=== PATIENT | female | born 1950 | race African-American/Black ===

== ENCOUNTER 2022-10-30 11:55 | Outpatient (CLI) | payer MEDICARE, SELFPAY ==
--- NOTE | ~2022-10-30 | MM_ITS ---
EXAMINATION: MM stereotactic bx LT, MM post biopsy diagnostic LT, MM stereotactic specimen LT, Specim en Radiograph, Tissue Marker Clip Placement, Unilateral Mammogram DATE: 10/30/2022 14:11 (accession [id number]), 10/30/2022 14:10 (accession [id number]), 10/30 14:11 (accession [id number]) INDICATION: Abnormal mammogram: Grouped microcalcifications, posterior upper inner left breast. TECHNIQUE AND FINDINGS: The risks and potential benefits of the procedure were discussed with the patient and written informe d consent was obtained. Timeout procedure was performed. The patient was placed in the prone position on the dedicated stereotactic table with the left breast in craniocaudal/caudocranial/mediolateral/l ateromedial compression, and the area of interest was localized and targeted utilizing digital imagin g with stereotaxis. After sterile preparation of the skin, 2% lidocaine was utilized for local anesthesia at the skin pun cture site and 2% lidocaine with epinephrine was utilized for deeper local anesthesia/is about the bi opsy site. A 9G Gl[place] vacuum assisted biopsy needle was advanced to the level of the calcification o f interest from a medial approach utilizing stereotactic guidance and a total of 12 tissue core biops ies were obtained. A specimen radiograph demonstrates that the calcifications of interest are included within the tissue cores. A tissue marker clip was then placed at the biopsy site. A digital mammographic exposure co nfirmed the successful deployment of the biopsy marker. The needle was removed and hemostasis was ac hieved. A sterile bandage was applied. The patient tolerated the procedure well and there is no bernadine dence of significant immediate complication. The patient was given verbal as well as written postpro cedural instructions prior to discharge from the department. Tissue cores were submitted to surgical pathology for histologic analysis. A 2-view right unilateral digital mammogram was obtained post procedure, demonstrating the tissue mar ker clip in expected position. IMPRESSION: 1. Successful stereotactic biopsy of posterior upper inner quadrant right breast microcalcification s, followed by tissue marker clip placement. Please refer to pathology report for histologic analysi s. Reviewed, dictated and finalized at [facility] Reviewed, dictated and finalized at [facility]. [facility] N[facility]SE OCCUPATIONAL MEDICINE IMPRESSION: 1. Successful stereotactic biopsy of posterior upper inner quadrant right eleni ast microcalcifications, followed by tissue marker clip placement. Please refe r to pathology report for histologic analysis. IMPRESSION: 1. Successful stereotactic biopsy of posterior upper inner quadrant right eleni ast microcalcifications, followed by tissue marker clip placement. Please refe r to pathology report for histologic analysis.
== END 2022-10-30 11:56 | disposition home or self-care (01) ==
PROVIDERS: PCP Internal Medicine; Visit Provider Surgery
DX: R92.0 Mammographic microcalcification found on diagnostic imaging of breast (principal); N60.22 Fibroadenosis of left breast
CPT/HCPCS: 19081; 77065; 88305; A4648

== ENCOUNTER 2025-02-04 12:53 | Outpatient (CLI) | payer MEDICARE, SELFPAY ==
--- NOTE | ~2025-02-04 | US_ITS ---
LEFT LOWER EXTREMITY VENOUS ULTRASOUND Ordering provider: Leon Hall, History: . LE edema . Comparison: None. FINDINGS: --COMMON FEMORAL: Patent and free of thrombus. Normal compressibility, phasic flow and augmentation. --PROXIMAL SUPERFICIAL FEMORAL: Patent and free of thrombus. Normal compressibility, phasic flow and augmentation. --DISTAL SUPERFICIAL FEMORAL: Patent and free of thrombus. Normal compressibility, phasic flow and au gmentation. --POPLITEAL: Patent and free of thrombus. Normal compressibility, phasic flow and augmentation. --POSTERIOR TIBIAL: Patent and free of thrombus. Normal compressibility, phasic flow and augmentation . IMPRESSION: Negative left lower extremity venous US. No deep vein thrombosis. Reviewed, dictated and finalized at location A.
--- OUTSIDE RECORDS SUMMARY | 2025-02-04 12:58 | XMS_ITS | Clinical Summary ---
Author Organization [facility] Address [address] [place] [id number] Care Team Providers Care Artificial Leather Calender Operator Name Role Phone No, Physician Primary Care Provider [phone] Allergies Active Allergy Reactions Criticality Noted Date Comments Bee Venom Protein (Honey Bee) Rash High 2022 Horse Dander Other (See comments) High 04/17/2023 Oseltamivir Rash Medium 04/17/2023 Medications hydroCHLOROth iazide (HYDRODIURIL) 25 mg tablet HYDROCHLOROTHIAZIDE 25 MG ORAL TABLET 10/05/19 16 Active lisinopriL (PRINIVIL,ZES TRIL) 40 mg tablet Take by mouth daily 12/29/19 20 Active nitroglycerin (NITROSTAT) 0.4 mg SL tablet NITROGLYCERIN 0.4 MG SUBLINGUAL TABLET SUBLINGUAL 02/03/20 08 Active amLODIPine (NORVASC) 10 mg tablet Take 1 tablet (10 mg total) by mouth daily Act amy Active Problems No known active problems Family History Medical History Relation Name Comments Hypertension Brother Kidney disease Brother Cancer Father's Sister Hypertension Maternal Grandmother Cancer Mother Breast cancer Sister Cancer Sister Hypertension Sister Relation Name Status Comments Brother Father's Sister Maternal Grandmother Mother Sister Social History Tobacco Use Types Packs/Day Years Used Date Smoking Tobacco: Never Smokeless Tobacco: Never Tobacco Cessation:Counseling Given: Not Answered Personal Safety Answer Date Recorded Getting School Help Needed Not on file 10/21 Comments Unknown Sex and Gender Information Value Date Recorded Sex Assigned at Not on file 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 Gender Identity Not on file Sexual Orientation Not on file Obstetrics History Last Filed Vital Signs Vital Sign Reading Time Taken Comments Blood Pressure 161/89 04/17/2023 2:19 PM CDT Pulse 78 04/17/2023 2:19 PM CDT Temperature 36.6 C (97.8 F) 04/17/2023 2:19 PM CDT Respiratory Rate 16 04/17/2023 2:19 PM CDT Oxygen Saturation 100% 04/17/2023 2:19 PM CDT Inhaled Oxygen Concentration - - Weight 79.4 kg (175 lb) 04/17/2023 2:19 PM CDT Height 160 cm (5' 2.99 ) 04/17/2023 2:19 PM CDT Body Mass Index 31.01 04/17/2023 2:19 PM CDT Plan of Treatment Health Maintenance Due Date Last Done Comments Colon Cancer Screening-Colonoscopy 1950 Depression Screening 1950 Fall Risk Assessment 1950 Osteoporosis Screening-Bone Density Scan 1950 DTaP/Tdap/Td Vaccine (1 - Tdap) 1961 Hepatitis B Screening 01/28/1968 Pneumococcal vaccine 65+ (1 of 1 - PCV) 01/28/2000 Zoster Vaccine (1 of 2) 01/28/2000 Well Visit 65+ 2015 Covid-19 Vaccine ( season) 2024 08/01/2021, 12/04/2020, 11/06/2020 Influenza Vaccine (Season Ended) 2025 Hepatitis C Screening Completed 04/17/2023 Procedures Procedure Name Priority Date/Time Associated Diagnosis Comments HEPATITIS C ANTIBODY Routine 04/17/2023 3:23 PM CDT Leukopenia, unspecified type Elevated blood protein from Last 3 Months or Most Recently Relevant to Health Maintenance Results * Hepatitis C antibody (04/17/2023 3:23 PM CDT) Hep C Ab Nonreactive Nonreactive [facility] Comment:Antibodies to HCV no t detected. Does NOT exclude the possibility of recent exposure to HCV. Current interpretive data was last revised on 22 Blood 04/17/2023 3:23 PM CDT 04/17/2023 4:09 PM CDT us Bertha Zhao MD LAB MICROBIOLOGY - GENERAL ORDERABLES Edited Result - Final JACLYN [facility] Department [place] [address] from Last 3 Months or Most Recently Relevant to Health Maintenance Insurance MEDICARE Care Teams Artificial Leather Calender Operator Relationship Specialty Start Date End Date No, Physician PCP - General 02/18/23
--- OUTSIDE RECORDS SUMMARY | 2025-02-04 12:58 | XMS_ITS | Referral Summary ---
Author Organization [facility] Address [address] [place] [phone] Care Team Providers Care Drilling Superintendent Name Role Phone No, Physician Primary Care Provider Allergies Active Allergy Reactions Criticality Noted Date [...] amy Active Problems No known active problems Social History Tobacco Use Types Packs/Day Years Used Date Smoking Tobacco: Never Smokeless Tobacco: Never Tobacco Cessation:Counseling Given: Not Answered Personal Safety Answer Date Recorded Getting School Help Needed Not on file 10/21 Comments Unknown Sex and Gender Information Value Date Recorded Sex Assigned at Not on file 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 Does NOT exclude the possibility of recent exposure to HCV. Current interpretive data was last revised on 22 Blood 04/17/2023 3:23 PM CDT 04/17/2023 4:09 PM CDT us Bertha Zhao MD LAB MICROBIOLOGY - GENERAL ORDERABLES Edited Result - Final JACLYN CELAYA [facility] Department [place] [address] from Last 3 Months or Most Recently Relevant to Health Maintenance Insurance MEDICARE Care Teams Drilling Superintendent Relationship Specialty Start Date End Date No, Physician PCP - General 02/18/23
--- OUTSIDE RECORDS SUMMARY | 2025-02-04 12:58 | XMS_ITS | CONTINUITY OF CARE DOCUMENT ---
Author Name judd whaley Address Unknown Organization [facility] Address 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 Alecia Landrum MD Hyperlipidemia active Alecia Landrum MD Dizziness on standing active Carlos Domínguez RBBB active Deion Stoddard MD AYAD active Deion Stoddard MD ENCOUNTERS Date Type Provider Location Encounter Diag nosis 1 - 1 In-person encounter Office Visit Deion Stoddard MD [facility] 2 - 2 In-person encounter Office Visit Deion Stoddard MD [facility] RBBBOSA 7 - 8 In-person encounter Office Visit Alecia Landrum MD [facility] 9 - 9 In-person encounter Office Visit Alecia Landrum MD [facility] 2 - 3 In-person encounter Office Visit Alecia Landrum MD [facility] 5 - 5 In-person encounter Office Visit Alecia Landrum MD [facility] CHEST PAIN-HTN - uncontrolledCAD-11/20 CAROTID NLHTN-09/24 MAGDA DUP NEG MAGDA US NEG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HyperlipidemiaDizziness on standing 1 - 4 In-person encounter Office Visit Terence Portillo MD [facility] 5 - 3 In-person encounter Office Visit Terence Portillo MD [facility] 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 5 - 5 In-person encounter Office Visit Deion Stoddard MD [facility] 4 - 4 In-person encounter Office Visit Deion Stoddard MD [facility] 8 - 8 In-person encounter Office Visit Deion Stoddard MD [facility] 0 - 1 In-person encounter Office Visit Alecia Landrum MD [facility] HTN - uncontrolled 1 - 3 In-person encounter Office Visit Alecia Landrum MD [facility] VITAL SIGNS Date Observation Value Provider Body Mass Index (Ratio) 29.14 kg/m2 Mayra Stoddard MD blood pressure, cuff size regular Julian Carlson blood pressure, diastolic 92 mm[Hg] Julian Carlson blood pressure, systolic 140 mm[Hg] Sterling Carlson pulse rate 99 /min Nancy Carlson oxygen saturation, oximetry 99 % Nancy Carlson weight E&M 169.8 [lb_av] Nancy Carlson respiratory rate E&M 12 /min Nancy Carlson height E&M 64 [in_i] Nancy Carlson Body Mass Index (Ratio) 28.32 kg/m2 Mayra Stoddard MD blood pressure, diastolic -1 mm[Hg] Li nkLogic blood pressure, systolic 199 mm[Hg] Cici kLog blood pressure, diastolic 104 mm[Hg] Ja rret blood pressure, systolic 199 mm[Hg] Jar ret pulse rate 84 /min González oxygen saturation, oximetry 100 % González respiratory rate E&M 18 /min González weight E&M 165 [lb_av] González height E&M 64 [in_i] González tarsha y blood pressure, diastolic 92 mm[Hg] Cy kimberly Stratton blood pressure, systolic 192 mm[Hg] Maryann Stratton height E&M 64 [in_i] Deya bowman height in centimeters E&M 162.56 cm Erick Stratton Body Mass Index (Ratio) 30.72 kg/m2 Tara Landrum MD blood pressure, kramer tolic, second observation 90 mm[Hg] Alecia Landrum MD blood pressure, syst olic, second observation 178 mm[Hg] Alecia Landrum MD blood pressure, diastolic 90 mm[Hg] Cy kimberly Stratton blood pressure, systolic 188 mm[Hg] Maryann Stratton respiratory rate E&M 16 /min Deya Stratton pulse rate 79 /min Deya bowman oxygen saturation, oximetry 98 % Deya Stratton weight E&M 179 [lb_av] Deya bowman blood pressure, cuff size regular Cy kimberly Stratton height E&M 64 [in_i] Deya Shamika l temperature site temporal Audreylyndsey gama temperature E&M 97.8 [degF] Audrey Lindsay kernsy blood pressure, diastolic 108 mm[Hg] Zaki Perdomo RN blood pressure, systolic 190 mm[Hg] Lamont Perdomo RN pulse rate 74 /min Lamont Perdomo RN height E&M 64 [in_i] Lamont Perdomo RN height in centimeters E&M 162.56 cm Zaki abiel Perdomo RN Body Mass Index (Ratio) 29.86 kg/m2 Kwaku n Yuniorte pulse rate 78 /min Karla Block weight E&M 174 [lb_av] [facility] blood pressure, diastolic 82 mm[Hg] Br ittany Block blood pressure, systolic 160 mm[Hg] Lisa bhaskar [facility] oxygen saturation, oximetry 96 % [facility] respiratory rate E&M 16 /min Pending sale to [facility] Block height E&M 64 [in_i] [facility] temperature E&M 97.3 [degF] Audreyniles kernsy Body Mass Index (Ratio) 29.69 kg/m2 Kwaku Domínguez blood pressure, diastolic 95 mm[Hg] Cy kimberly Stratton blood pressure, systolic 174 mm[Hg] Maryann david Stratton pulse rate 79 /min Deya Chuckiejett l oxygen saturation, oximetry 98 % Deyalyndsey Stratton blood pressure, cuff size regular Cy kimberly Stratton respiratory rate E&M 16 /min Deya Stratton weight E&M 173 [lb_av] Deya Chuckiebel l height E&M 64 [in_i] Deya Chuckiebel l temperature E&M 98.0 [degF] Audreyniles Montoya edson Body Mass Index (Ratio) 29.69 kg/m2 Kwaku Domínguez temperature E&M 97.4 [degF] Liliana Puhs e blood pressure, resting Yes Brit [employer] [facility] Block pulse rate 78 /min Karla Block oxygen saturation, oximetry 98 % Karla Block blood pressure, diastolic 82 mm[Hg] Br ittany Block blood pressure, systolic 180 mm[Hg] Lisa ttany Block weight E&M 173 [lb_av] Karla Block respiratory rate E&M 16 /min Pending [facility] to [facility] Block height E&M 64 [in_i] [facility] blood pressure, diastolic 95 mm[Hg] Jose emelyNicolasaabiel Aguila blood pressure, systolic 182 mm[Hg] Farhana Aguila pulse rate 98 /min Joana Araiza oliver oxygen saturation, oximetry 97 % Joana Aguila respiratory rate E&M 18 /min Dano lutz Aguila Body Mass Index (Ratio) 33.81 kg/m2 Gloria Aguila weight E&M 197 [lb_av] Joana Araiza oliver blood pressure, diastolic 98 mm[Hg] Sarabjit chaaprrolyndsey Garvinecs RN blood pressure, systolic 205 mm[Hg] Radames sta Virgieecs RN pulse rate 93 /min [place] Demecs R N oxygen saturation, oximetry 95 % [place] Cory RN respiratory rate E&M 18 /min Annie Demecs RN Body Mass Index (Ratio) 33.47 kg/m2 Sang Ray RN weight E&M 195 [lb_av] [place] Demecs R N blood pressure, diastolic 98 mm[Hg] Zaki Perdomo RN blood pressure, systolic 175 mm[Hg] Lamont Perdomo RN pulse rate 74 /min Lamont Dunns RN oxygen saturation, oximetry 98 % Lamont Dunns RN respiratory rate E&M 16 /min Lamont dillon RN Body Mass Index (Ratio) 29.97 kg/m2 Lamont Dunns RN weight E&M 174 [lb_av] Lamont Dunns RN Body Mass Index (Ratio) 30.66 kg/m2 Mcadams i Emily blood pressure, diastolic 96 mm[Hg] Heber rri Emily blood pressure, systolic 163 mm[Hg] Milton Diaz pulse rate 61 /min Leatha Talbot lder oxygen saturation, oximetry 98 % Leatha Diaz respiratory rate E&M 17 /min Leatha mesa weight E&M 178 [lb_av] Leatha Talbot lder blood pressure, diastolic 104 mm[Hg] Zaki Perdomo RN blood pressure, systolic 203 mm[Hg] Lamont Perdomo RN pulse rate 73 /min Lamont Perdomo RN oxygen saturation, oximetry 99 % Lamont Dunnguy FREGOSO respiratory rate E&M 16 /min Lamont dillon RN Body Mass Index (Ratio) 31.01 kg/m2 Lamont Dunns RN weight E&M 180 [lb_av] Lamont Dunns RN height E&M 64 [in_i] Lamont Perdomo RN blood pressure, diastolic 106 mm[Hg] Zaki Perdomo RN blood pressure, systolic 193 mm[Hg] Lamont Perdomo RN pulse rate 81 /min Lamont Perdomo RN oxygen saturation, oximetry 99 % Lamont Perdomo RN respiratory rate E&M 16 /min Lamont dillon RN weight E&M 190 [lb_av] Lamont Perdomo RN blood pressure, diastolic, left arm 95 mm [Hg] Yuval Dave blood pressure, systolic, left arm 155 mm [Hg] Yuval Dave blood pressure, diastolic, right arm 93 m m[Hg] Yuval Dave blood pressure, systolic, right arm 153 m m[Hg] Yuval Dave pulse rate 70 /min Yuval Acosta oxygen saturation, oximetry 97 % Yuval Acosta respiratory rate E&M 18 /min Yuval sutton weight E&M 191 [lb_av] Yuval Acosta ALLERGIES Allergy Name Onset Date Reaction Criticality Status TAMIFLU High Criticality active RESULTS Date Observation Value Provider Reference Range Interpretation Location C-reactive protein, serum 0.2 mg/dL [facility] 0.0 - 0.5 anion gap, serum 10.0 [facility] - albumin/globulin ratio, serum 1.8 g/dL [facility] 1.1 - 2.5 globulin, serum 5.2 [facility] 2.3 - 3.8 High urea nitrogen/creatinine ratio, serum 15.0 [facility] - Estimated Glomerular Filtration Rate (calc) 76.5 (?) [facility] 59.0 - chloride, serum 101.0 mmol/L [facility] 98.0 - 107.0 potassium, serum 3.4 mmol/L [facility] 3.5 - 5.1 Low sodium, serum 139.0 mmol/L [facility] 136.0 - 145.0 creatinine, serum 0.8 mg/dL [facility] 0.5 - 0.9 carbon dioxide, venous blood 28.0 mmol/L [facility] 23.0 - 31.0 albumin, serum 4.1 g/dL [facility] 3.5 - 5.2 calcium, serum 9.4 mg/dL [facility] 8.6 - 10.2 aspartate aminotransferase (SGOT), serum 27.0 1/L [facility] 0.0 - 32.0 alkaline phosphatase, serum 79.0 1/L [facility] 40.0 - 130.0 alanine aminotransferase (SGPT), serum 17.0 1/L [facility] 0.0 - 33.0 protein, total, serum 9.3 g/dL [facility] 6.6 - 8.7 High bilirubin, serum, total 0.6 mg/dL [facility] 0.0 - 1.2 urea nitrogen, blood 12.0 mg/dL [facility] 8.0 - 23.0 blood glucose, random 111.0 mg/dL [facility] 74.0 - 99.0 High lipoprotein, beta, serum, point, quantitative, calculated 124 mg/dL Tila Erazo cholesterol, serum 214 mg/dL Tila Erazo alanine aminotransferase (SGPT), serum 19 1/L Tila Erazo aspartate aminotransferase (SGOT), serum 23 1/L Tila Erazo creatinine, serum 0.92 mg/dL Tila Erazo potassium, serum 3.9 mmol/L Tila Erazo sodium, serum 139 mmol/L Tila Erazo HISTORY OF MEDICATION USE Medication Status Instructions Dates Provider Indications Com ments amlodipine 10 mg tablet active TAKE 1 TABLET BY MOUTH EVERY DAY Deion Stoddard MD nifedipine 30 mg tablet extended release completed Take 1 tablet by mouth once a day 03/20 - 03/26 Deion Stoddard MD spironolactone 25 mg tablet completed Take 1 tablet by mouth once a day 03/17 - 03/26 Deion Stoddard MD omeprazole 40 mg capsule,delayed release(/EC) completed capsule by mouth once a day 12/28 - 03/26 Deion Stoddard MD lisinopril 40 mg tablet active tablet by mouth once a day 12/28 Deion Stoddard MD atorvastatin 20 mg tablet completed Take 1 tablet by mouth once a day 12/07 - 03/26 Deion Stoddard MD #30, 30 days supply, Prescribed by KAREN PAYTON, Filled 12/08/2019 NAPROSYN TABS completed as needed for pain - 12/28 Alecia Landrum MD CLONIDINE HCL 0.1 MG ORAL TABLET completed ONE TAB.at hs - 09/19 Annie Ray RN NEXIUM CAPSULE DELAYED RELEASE completed as needed - 03/31 Leatha Diaz CARVEDILOL 6.25 MG ORAL TABLET completed ONE TAB. TWICE DAILY as needed - 09/19 Annie Ray RN ZANTAC 150 MG ORAL TABLET completed po bid as needed - 12/28 Alecia Landrum MD NORVASC 5 MG ORAL TABLET completed po daily 09/19 - 01/04 Alecia Landrum MD RANITIDINE HCL 150 MG ORAL TABLET completed ONE TAB TWICE DAILY - Lamont Perdomo RN nitroglycerin 0.4 mg tablet, sublingual active Take tablet under tongue as needed Deion Stoddard MD CRESTOR 40 MG ORAL TABLET completed at hs - 09/19 Annie Ray RN ASPIRIN 81 MG ORAL TABLET CHEWABLE completed ONE TAB. DAILY - 11/12 Lamont Perdomo RN NORVASC 5 MG ORAL TABLET completed ONE TAB. DAILY - 02/02 Alecia Landrum MD PROCARDIA XL 60 MG ORAL TABLET EXTENDED RELEASE 24 HOUR completed one tab daily - Lamont Perdomo RN hydrochlorothiazide 25 mg tablet active 1 tablet by mouth once a day 10/05 Deion Stoddard MD LISINOPRIL 40 MG ORAL TABLET completed ONE TAB. twice DAILY - 09/19 Annie Ray RN approved for 1 year per [place] Medicaid. 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 Terence Portillo MD drug use no Terence Gutierrez alcohol use no Teernce Gutierrez smoking status Never smoker Annie Ray RN social history reviewed E&M reviewed Lamont Perdomo RN social history reviewed E&M reviewed Deion Stoddard MD drug use no Lamont Perdomo RN passive cigarette sm lukas exposure no Lamont Perdomo RN social history reviewed E&M reviewed Lamont Perdomo RN smoking status never smoker Lamont Perdomo RN social history E&M Marital Statu s: L ashley with family/friends E thnicity: Lamont Perdomo RN social history reviewed E&M reviewed Lamont Perdomo RN alcohol use, average drinks per day none [facility] smoking status Non-smoker [facility] alcohol use, average drinks per day none [facility] smoking status Non-smoker [facility] MENTAL STATUS Date Observation Value Provider assessment of judgme nt and insight E&M Alert and oriented to time, place and person. Mood and affect are normal. Lamont Perdomo RN assessment of judgme nt and insight E&M Alert and oriented to time, place and person. Mood and affect are normal. Deion Stoddard MD assessment of judgme nt and insight E&M Alert and oriented to time, place and person. Mood and affect are normal. Lamont Perdomo RN assessment of judgme nt and insight E&M Alert and oriented to time, place and person. Mood and affect are normal. Lamont Perdomo RN assessment of judgme nt and insight E&M Alert and oriented to time, place and person. Mood and affect are normal. Alecia Landrum MD FAMILY HISTORY Family Member Condition Mother Family History of Ot her Diseases INSURANCE PROVIDERS Payer name Policy type / Coverage type [employer] party ID [place] [employer] Medicare [id number] ADVANCE DIRECTIVES Name Date DISCUSSED - NO DECISION MADE TREATMENT PLAN Date Name Performer Cardiology Deion Stoddard MD Cardiology: H er updated medication list for this problem includes: Lisinopril 40 Mg Tablet (Lisinopril) ..... Tablet by mouth once a day Hydrochlorothiazide 25 Mg Tablet (Hydrochlorothiazide) ..... 1 tablet by mouth once a day Amlodipine 10 Mg Tablet (Amlodipine) ..... Take 1 tablet by mouth every day BP today: 140/92 P rior BP: 199/-1 (03/26/2024) Labs Reviewed: C reat: 0.8 (09/20/2015) C hol: 214 (09/18/2012) LDL: 124 (09/18/2012) Deion Stoddard MD Cardiology Deion Stoddard MD Cardiology: N ot taking statin Deion Stoddard MD Cardiology:Given the patient's limitations in mobility due to arthritic pains and sob, they would not be able to reach the 85% of max predicted heart rate needed for routine stress testing to be specific for ischemia. Based on this a nuclear regadenoson nuclear stress test should be performed. Her atypical CP may be anginal equivalent Deion Stoddard MD Cardiology Deion Stoddard MD Cardiology:She has u sed CPAP in the past, but is not using it currently c jodi home sleep study as AYAD may be contributing to her HTN Deion Stoddard MD Cardiology:Not taking statin Araceli Stoddard MD Cardiology:Recent ep isode of chest pain while under emotional stress Deion Stoddard MD Cardiology:Markedly elevated, will get her on RPM r /o primary htn with renal artery doppler D iscussion of benefits for remote patient monitoring took place. Patient gives consent for remote monitoring of physiologic parameters including, but not limited to, weight, blood pressure, pulse oximetry, respiratory flow rate. The following medications were removed from the medication list: Spironolactone 25 Mg Tablet (Spironolactone) ..... Take 1 tablet by mouth once a day Nifedipine 30 Mg Tablet Extended Release (Nifedipine) ..... Take 1 tablet by mouth once a day & #13;Her updated medication list for this problem includes: Lisinopril 40 Mg Tablet (Lisinopril) ..... Tablet by mouth once a day Hydrochlorothiazide 25 Mg Tablet (Hydrochlorothiazide) ..... 1 tablet by mouth once a day Amlodipine 10 Mg Tablet (Amlodipine) ..... Take 1 tablet by mouth every day BP today: 199/104 P rior BP: 192/92 (02/11/2020) Labs Reviewed: C reat: 0.8 (09/20/2015) C hol: 214 (09/18/2012) LDL: 124 (09/18/2012) Deion Stoddard MD Cardiology:On Atorva statin which she continues. Alecia Landrum MD Cardiology:Resolved. Alecia hawkins MD Cardiology:Still persists. Livan Landrum MD Cardiology:Blood pre ssure remians uncontrolled as she has been noncompliant with Nifedipine due to fatigue. Advised to take Nifedipine at night to see if this improves blood pressure control while not interfering with her ability to work. Alecia Landrum MD Cardiology :Recently started on Atorvastatin which she continues. Carlos Cardiology :No recurrence. Carlos Cardiology :Persists but improved. Will continue to monitor. Carlos Cardiology :Blood pr essure control seems to have improved. Will repeat ambulatory blood pressure monitoring in 2 weeks. She may need increased dose of Nifedipine to control the blood pressure. Compliance with diet and medications have been advised. Carlos gerard Cardiology :Recently started on Atorvastatin which she continues. Alecia Landrum MD Cardiology :Persists . Likely related to uncontrolled hypertension. No orthostasis documented in the office. Her carotid doppler was normal. Alecia Landrum MD Cardiology :No recur rence. Her recent stress test was normal and she has been reassured. Alecia Landrum MD Cardiology :Her bloo d pressure remains elevated with symptoms of dizziness, blurred vision, and nausea. No orthostasis documented: BP sitting 189/100, BP standing 189/100. Will discontinue Norvasc and start Nifedipine ER 30mg daily. She is advised to reduce her daily sodium intake to less than 2g per day. Advised to monitor her blood pressure regularly. We aim for < 130/80. Her renal arterial doppler shows no evidence of renal artery stenosis. She did have an ambulatory blood pressure monitoring which showed spikes of blood pressure over 200 systolic and average blood pressure in the 180s/ 100s. Alecia Landrum MD Cardiology:Dizziness and lightheadedness upon standing of unclear etiology. Advisd to change positions slowly. Will arrange carotid doppler. Carlos Cardiology Carlos Cardiology:Recently started on Atorvastatin which she continues. Carlos Cardiology:Atypical chest pain at rest likely related to uncontrolled hypertension. Will arrange stress test to rule out ischemia. Carlos Cardiology:Her recen t renal function was normal. Will add Aldactone 25mg daily and arrange renal arterial doppler. Will also arrange ambulatory blood pressure monitoring to further evaluate blood pressure control. Carlos Domínguez Hem/Onc:The patient' s SPEP revealed a polyclonal hypergammaglobnemia with no detectable monoclonal protein on serum immunofix. I question if the patient has an underlying vasculitis as the cause of her symptoms. I will recheck SPEP, SIFE, Free light chains. I will also evaluate for cyroglobulinemia. I will check heaptitis seroligies as well as CHRISTIAN. Although unlikely, I will also check spot urine for porphobilinogen for acute porhpyria. The patient is due for a mammogram which will be ordered. She will return in two weeks to review lab testing. Orders: B eta-2 microglobulin (55335) KAPPA LIGHT CHAIN, FREE (78077) L AMBDA LIGHT CHAIN, FREE (71465) C OMPREHENSIVE METABOLIC PANEL W/EGFR (31424) E LECTROPHORESIS AND IMMUNOFIXATION, SERUM WITH TRACING (57164) A NA w/Reflex (293021) R HEUMATOID FACTOR (4418) P ORPHOBILINOGEN, QUANT., RANDOM URINE (6329) L DH (662796) A CUTE HEPATITIS PANEL (REFL) (02323) C RYOGLOBULIN (%CRYOCRIT), SERUM (74061) 9 9204 MOD Complex (CPT-49573) Terence Portillo MD : H er updated medication list for this problem includes: Lisinopril 40 Mg Tabs (Lisinopril) ..... One tab. twice daily Nitroglycerin 0.4 Mg Subl (Nitroglycerin) ..... Take as needed for chest pain Amlodipine Besylate 10 Mg Tabs (Amlodipine besylate) ..... One tab. daily as needed Carvedilol 6.25 Mg Tabs (Carvedilol) ..... One tab. twice daily as needed BP today: / Prior BP: 163/96 (12/17/2012) C ardiac Cath: EF 60%. Angiographically normal coronary arteries. Normal LV systolic function. Angiographically normal left and right renal artery. (12/09/2007) C arotid Doppler/Duplex: normal: (11/25/2007) C HOL: 214 (09/18/2012) LDL: 124 (09/18/2012) Creat: 0.92 (09/18/2012) Na+: 139 (09/18/2012) K+: 3.9 (09/18/2012) Deion Stoddard MD : H er updated medication list for this problem includes: Lisinopril 40 Mg Tabs (Lisinopril) ..... One tab. twice daily Crestor 40 Mg Tabs (Rosuvastatin calcium) ..... At hs Nitroglycerin 0.4 Mg Subl (Nitroglycerin) ..... Take as needed for chest pain Amlodipine Besylate 10 Mg Tabs (Amlodipine besylate) ..... One tab. daily as needed Carvedilol 6.25 Mg Tabs (Carvedilol) ..... One tab. twice daily as needed BP today: / Prior BP: 163/96 (12/17/2012) C ardiac Cath: EF 60%. Angiographically normal coronary arteries. Normal LV systolic function. Angiographically normal left and right renal artery. (12/09/2007) C arotid Doppler/Duplex: normal: (11/25/2007) C HOL: 214 (09/18/2012) LDL: 124 (09/18/2012) Creat: 0.92 (09/18/2012) Na+: 139 (09/18/2012) K+: 3.9 (09/18/2012) Deion Stoddard MD :still non compliant H er updated medication list for this problem includes: Lisinopril 40 Mg Tabs (Lisinopril) ..... One tab. twice daily Hydrochlorothiazide 25 Mg Tabs (Hydrochlorothiazide) ..... One tab daily Amlodipine Besylate 10 Mg Tabs (Amlodipine besylate) ..... One tab. daily as needed Carvedilol 6.25 Mg Tabs (Carvedilol) ..... One tab. twice daily as needed Clonidine Hcl 0.1 Mg Tabs (Clonidine hcl) ..... One tab.at hs Prior BP: 163/96 (12/17/2012) Labs Reviewed: C reat: 0.92 (09/18/2012) C hol: 214 (09/18/2012) LDL: 124 (09/18/2012) Deion Stoddard MD follow up: H er updated medication list for this problem includes: Lisinopril 40 Mg Tabs (Lisinopril) ..... One tab. twice daily Crestor 40 Mg Tabs (Rosuvastatin calcium) ..... At hs Nitroglycerin 0.4 Mg Subl (Nitroglycerin) ..... Take as needed for chest pain Amlodipine Besylate 10 Mg Tabs (Amlodipine besylate) ..... One tab. daily Carvedilol 6.25 Mg Tabs (Carvedilol) ..... One tab. twice daily Orders: E KG (CPT-67215) Deion Stoddard MD follow up: H er updated medication list for this problem includes: Lisinopril 40 Mg Tabs (Lisinopril) ..... One tab. twice daily Hydrochlorothiazide 25 Mg Tabs (Hydrochlorothiazide) ..... One tab daily Amlodipine Besylate 10 Mg Tabs (Amlodipine besylate) ..... One tab. daily Carvedilol 6.25 Mg Tabs (Carvedilol) ..... One tab. twice daily I s not compliant with her meds. to have sleep study this weekend. Deion Stoddard MD follow up:I believe it is non cardiac. H er updated medication list for this problem includes: Lisinopril 40 Mg Tabs (Lisinopril) ..... One tab. twice daily Nitroglycerin 0.4 Mg Subl (Nitroglycerin) ..... Take as needed for chest pain Amlodipine Besylate 10 Mg Tabs (Amlodipine besylate) ..... One tab. daily Carvedilol 6.25 Mg Tabs (Carvedilol) ..... One tab. twice daily Deion Stoddard MD chest pain:more like ly non cardiac T he following medications were removed from the medication list: Aspirin 81 Mg Chew (Aspirin) ..... One tab. daily Her updated medication list for this problem includes: Lisinopril 40 Mg Tabs (Lisinopril) ..... One tab. twice daily Nitroglycerin 0.4 Mg Subl (Nitroglycerin) ..... Take as needed for chest pain Amlodipine Besylate 10 Mg Tabs (Amlodipine besylate) ..... One tab. daily Carvedilol 6.25 Mg Tabs (Carvedilol) ..... One tab. twice daily BP today: / Prior BP: 193/106 (09/13/2009) C ardiac Cath: EF 60%. Angiographically normal coronary arteries. Normal LV systolic function. Angiographically normal left and right renal artery. (12/09/2007) C arotid Doppler/Duplex: normal: (11/25/2007) Orders: E KG (CPT-60476) C omplete Echo (CPT-40630) Deion Stoddard MD chest pain:203/104 t juliette. she has ah x of sleep apnea but has lost her mask and will need a sleep study. T he following medications were removed from the medication list: Aspirin 81 Mg Chew (Aspirin) ..... One tab. daily Her updated medication list for this problem includes: Lisinopril 40 Mg Tabs (Lisinopril) ..... One tab. twice daily Hydrochlorothiazide 25 Mg Tabs (Hydrochlorothiazide) ..... One tab daily Amlodipine Besylate 10 Mg Tabs (Amlodipine besylate) ..... One tab. daily Carvedilol 6.25 Mg Tabs (Carvedilol) ..... One tab. twice daily Prior BP: 193/106 (09/13/2009) Deion Stoddard MD chest pain: T he following medications were removed from the medication list: Aspirin 81 Mg Chew (Aspirin) ..... One tab. daily Her updated medication list for this problem includes: Lisinopril 40 Mg Tabs (Lisinopril) ..... One tab. twice daily Crestor 40 Mg Tabs (Rosuvastatin calcium) ..... At hs Nitroglycerin 0.4 Mg Subl (Nitroglycerin) ..... Take as needed for chest pain Amlodipine Besylate 10 Mg Tabs (Amlodipine besylate) ..... One tab. daily Carvedilol 6.25 Mg Tabs (Carvedilol) ..... One tab. twice daily BP today: / Prior BP: 193/106 (09/13/2009) C ardiac Cath: EF 60%. Angiographically normal coronary arteries. Normal LV systolic function. Angiographically normal left and right renal artery. (12/09/2007) C arotid Doppler/Duplex: normal: (11/25/2007) Deion Stoddard MD Ready to sign:BP merlin vated. Lisinopril increased to 40 mg daily. T he following medications were removed from the medication list: Norvasc 5 Mg Tabs (Amlodipine besylate) ..... One tab. daily H er updated medication list for this problem includes: Lisinopril 20 Mg Tabs (Lisinopril) ..... Two tab. daily Hydrochlorothiazide 25 Mg Tabs (Hydrochlorothiazide) ..... One tab daily Procardia Xl 60 Mg Tb24 (Nifedipine) ..... One tab daily Aspirin 81 Mg Chew (Aspirin) ..... One tab. daily Alecia Landrum MD Ready to sign:Occaso nal chest pain. S/L NTG prn. T he following medications were removed from the medication list: Norvasc 5 Mg Tabs (Amlodipine besylate) ..... One tab. daily Her updated medication list for this problem includes: Lisinopril 20 Mg Tabs (Lisinopril) ..... Two tab. daily Procardia Xl 60 Mg Tb24 (Nifedipine) ..... One tab daily Aspirin 81 Mg Chew (Aspirin) ..... One tab. daily Nitroglycerin Subl (Nitroglycerin subl) ..... Prn for chest pain Alecia Landrum MD Date Name Hypertension [facility] Stress Regadenoson PROBNP, N TERMINAL BASIC METABOLIC PANE L W/EGFR RPM (remote patient monitoring) Sleep Study Home Renal Artery Duplex Complete Echo Ambulatory BP Ambulatory BP Carotid Duplex Bilat eral Renal Artery Duplex Stress Regadenoson ANCA SCREEN WITH REF SUDHIR TO C- & P-ANCA TITERS AND MPO OR [place]-3 AB ANCA Panel ANCA SCREEN WITH REF SUDHIR TO C- & P-ANCA TITERS AND MPO OR [place]-3 AB ANCA Panel SED RATE BY MODIFIED WESTERGREN C-REACTIVE PROTEIN CRYOGLOBULIN (%CRYOC RIT), SERUM ACUTE HEPATITIS PANE L (REFL) Mammogram, Bilateral LDH PORPHOBILINOGEN, OLIVE NT., RANDOM URINE RHEUMATOID FACTOR CHRISTIAN w/Reflex ELECTROPHORESIS AND IMMUNOFIXATION, SERUM WITH TRACING COMPREHENSIVE METABO LIC PANEL W/EGFR LAMBDA LIGHT CHAIN, FREE KAPPA LIGHT CHAIN, F REE Beta-2 microglobulin Complete Echo Sleep Study Kidney Ultrasound Renal Artery Duplex HISTORY OF PROCEDURES Procedure Date Procedure Name Provider Procedure Notes S tatus Complex e/m visit add on Nancy Carlson completed EKG Deion Stoddard MD completed EKG Alecia Landrum MD complet ed EKG Alecia Landrum MD complet ed EKG Alecia Landrum MD complet ed Regadenoson, 4 units Alecia Landrum MD completed Cardiolite, 2 units Alecia Landrum MD completed SPECT Images Alecia Landrum MD compl eted Stress EKG Alecia Landrum MD complet ed EKG Alecia Landrum MD complet ed SNOMED-CT: 361649040 250540 Current Medications Documented Terence Portillo MD completed SNOMED-CT: 852667486 355435 Current Medications Documented Terence Portillo MD completed EKG Deion Stoddard MD completed EKG Deion Stoddard MD completed EKG Alecia Landrum MD complet ed
== END 2025-02-04 12:54 | disposition home or self-care (01) ==
PROVIDERS: PCP Internal Medicine; Visit Provider Internal Medicine
DX: R60.0 Localized edema (principal)
CPT/HCPCS: 93971

== ENCOUNTER 2025-02-21 11:43 | Outpatient (CLI) | payer MEDICARE, SELFPAY ==
[2025-02-21 12:00] LABS: Basophils Percent Auto 0.3 % (0.2-1.2); Eosinophils Absolute Auto 0.2 K/mm3 (0-0.3); Eosinophils Percent Auto 4.9 % (0-4.4); Hematocrit 38.8 % (37.0-47.0); Hemoglobin 12.3 g/dL (12.0-15.0); Lymphocytes Percent Auto 45.8 % (18.3-44.2); Mean Corpuscular HGB Conc 31.7 g/dl (32-36); Mean Corpuscular Hemoglobin 28.7 pg (26-34); Mean Corpuscular Volume 90.7 fl (80-100); Mean Platelet Volume 10.3 fl (7.4-10.4); Monocytes Absolute Auto 0.2 K/mm3 (0.1-0.6); Monocytes Percent Auto 7.5 % (2.6-8.5); Neutrophils Absolute Auto 1.3 K/mm3 (1.3-6.7); Neutrophils Percent Auto 41.5 % (45.5-73.1); Platelet Count Result 195 k/mm3 (150-375); Red Blood Count 4.28 M/mm3 (4.2-5.4); Red Cell Distribution Width 14.1 % (11.5-14.5); White Blood Count 3.1 K/mm3 (4.5-10.0)
[2025-02-21 12:57] LABS: Alanine Aminotransferase 20 U/L (6-35); Albumin Level 4.3 g/dL (3.5-5.1); Alkaline Phosphatase 85 U/L (38-126); Anion Gap 6 mmol/L (4-12); Aspartate Amino Transferase 46 U/L (14-36); Bilirubin,Total 0.7 mg/dL (0.2-1.3); Blood Urea Nitrogen 12 mg/dL (7-17); Calcium 9.2 mg/dL (8.4-10.2); Carbon Dioxide 29 mmol/L (22-30); Chloride 104 mmol/L (98-107); Estimated Glomerular Filt Rate 56; Glucose 101 mg/dL (65-110); Potassium 3.6 mmol/L (3.4-5.0); Sodium 139 mmol/L (137-145); Total Protein 9.8 g/dL (6.3-8.2)
--- OUTSIDE RECORDS SUMMARY | 2025-02-21 13:15 | XMS_ITS | Referral Summary ---
Author Organization [facility] Address [address] [place] [id number] Care Team Providers Care Sintering Plant Supervisor Name Role Phone No, Physician Primary Care Provider [phone] Allergies Active Allergy Reactions Criticality Noted Date [...] on file Legal Sex Female 4:12 PM PART TIME Gender Identity Not on file Sexual Orientation [...] 2:19 PM CDT Height 160 cm (5' 2.99) 04/17/2023 2:19 PM CDT Body Mass Index [...] Edited Result - Final JACLYN CELAYA [facility] Department [place] [address] from Last 3 Months or Most Recently Relevant to Health Maintenance Insurance MEDICARE Care Teams Sintering Plant Supervisor Relationship Specialty Start Date End Date No, Physician PCP - General 02/18/23
--- OUTSIDE RECORDS SUMMARY | 2025-02-21 13:15 | XMS_ITS | Clinical Summary ---
Author Organization [facility] Rajiv tovar Fifi Address [address] [place] [address] Care Team Providers Care Deflector Operator Name Role Phone Unavailable Primary Care Provider Unavailabl e Allergies No known active allergies Medications lisinopriL (PRINIVIL) 40 mg tablet Take 40 mg by mouth daily. Active NITROGLYCERIN ORAL Take by mouth Continuous as needed. Active hydroCHLOROthia zide 12.5 mg tablet Take 12.5 mg by mouth daily. Active Active Problems No known active problems Encounters Date Type Department Care Team Description 02/21/2025 11:30 AM CDT Office Visit [facility] Oncology and H[facility] - [place] [address] [address] Colin Diane MD Plasma cell disorder (Primary Dx) from Last 3 Months Family History Medical History Relation Name Comments No Known Problems Brother 1 No Known Problems Brother 2 No Known Problems Child 1 No Known Problems Child 2 No Known Problems Father No Known Problems Granddaughter named as 3rd daughter Myelodysplastic syndrome Mother No Known Problems Sister 1 Breast Cancer Sister 2 Heart Disease Sister 2 Breast Cancer Sister 4 Heart Disease Sister 4 Hypertension Sister 5 Relation Name Status Comments Brother 1 Alive Brother 2 Child 1 Child 2 Alive Father Granddaughter named as 3rd daughter Alive Mother Sister 1 Alive Sister 2 Sister 3 Alive Sister 4 Sister 5 Alive Social History Tobacco Use Types Packs/Day Years Used Date Smoking Tobacco: Never Smokeless Tobacco: Never Alcohol Use Standard Drinks/Week Comments Never 0 (1 standard drink = 0.6 oz pur e alcohol) Comments Unknown Sex and Gender Information Value Date Recorded Sex Assigned at Not on file Legal Sex Female 2:54 PM CDT Gender Identity Not on file Sexual Orientation Not on file Last Filed Vital Signs Vital Sign Reading Time Taken Comments Blood Pressure 225/118 02/21/2025 11:03 AM CDT Pulse 82 02/21/2025 10:57 AM CDT Temperature 36.3 C (97.4 F) 02/21/2025 10:57 AM CDT Respiratory Rate 16 02/21/2025 10:57 AM CDT Oxygen Saturation 95% 02/21/2025 10:57 AM CDT Inhaled Oxygen Concentration - - Weight 75.8 kg (167 lb) 02/21/2025 10:57 AM CDT Height 162.6 cm (5' 4) 02/21/2025 10:57 AM CDT Body Mass Index 28.67 02/21/2025 10:57 AM CDT Plan of Treatment Upcoming Encounters Date Type Department Care Team (Late st Contact Info) Description 03/07/2025 4:30 PM CDT Telephone Check Up [facility] Oncology and Hematology [facility] [address] [facility] [address] [place] [address] Colin Diane MD [address] [facility] [address] [place] [address] Health Maintenance Due Date Last Done Comments DTAP/TDAP/TD VACCINES (1 - Tdap) 1969 COLORECTAL SCREENING 1995 Colorectal Cancer Screening 1995 FIT-DNA Q 3 years 1995 FIT/FOBT Q 1 year 1995 Flex Sig/CT Colonography Q 5 years 1995 PNEUMOCOCCAL VACCINE 50+ YEARS (1 of 1 - PCV) 01/28/20 00 ZOSTER VACCINE (1 of 2) 01/28/2000 OSTEOPOROSIS SCREENING 2015 INFLUENZA VACCINE (#1) 2024 Medicare Advantage ([place]) Prev entative Visit/Annual Wellness Visit 09/15/2024 RSV VACCINE (60+ or ) (1 - 1-dose 75+ series) 2025 Insurance [employer] O MCR
--- OUTSIDE RECORDS SUMMARY | 2025-02-21 13:15 | XMS_ITS | CONTINUITY OF CARE DOCUMENT ---
Author Name judd whaley Address Unknown Organization [facility] Address [address] [place] [address] Phone [phone] Care Team Providers Care Sales Order Administrator Name Role Phone Deion Stoddard MD Unavailable [phone] KAREN PAYTON MD Unavailable [phone] KAREN PAYTON MD Unavailable PROBLEMS Condition Status Date Provider Notes CHEST PAIN- active Alecia Landrum MD HTN - uncontrolled active Alecia Landrum MD CAD-308 CAROTID NL completed - Alecia Landrum MD [...] In-person encounter Office Visit Deion Stoddard MD [place] [facility] 2 - 2 In-person encounter Office Visit Deion Stoddard MD [place] [facility] RBBBOSA 7 - 8 In-person encounter Office Visit Alecia Landrum MD [place] [facility] 9 - 9 In-person encounter Office Visit Alecia Landrum MD [facility] 2 - 3 In-person encounter Office Visit Alecia Landrum MD [facility] 5 - 5 In-person encounter Office Visit Alecia Landrum MD [place] [facility] CHEST PAIN-HTN - uncontrolledCAD-11/20 CAROTID NLHTN-09/24 MAGDA DUP NEG MAGDA US NEG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HyperlipidemiaDizziness on standing 1 - 4 In-person encounter Office Visit Terence Portillo MD [facility] 5 - 3 In-person encounter Office Visit Terence Portillo MD [place] [facility] 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 5 - 5 In-person encounter Office Visit Deion Stoddard MD [facility] 4 - 4 In-person encounter Office Visit Deion Stoddard MD [facility] 8 - 8 In-person encounter Office Visit Deion Stoddard MD [facility] 0 - 1 In-person encounter Office Visit Alecia Landrum MD [facility] HTN - uncontrolled 1 - 3 In-person encounter Office Visit Alecia Landrum MD [facility] VITAL SIGNS Date Observation Value Provider [...] /min Karla Block weight E&M 174 [lb_av] [facility] blood pressure, diastolic 82 mm[Hg] Br ittany Block blood pressure, systolic 160 mm[Hg] Lisa bhaskar [facility] oxygen saturation, oximetry 96 % [facility] respiratory rate E&M 16 /min [facility] Block height E&M 64 [in_i] [facility] temperature E&M 97.3 [degF] Audreyniles kernsy Body [...] Puhs e blood pressure, resting Yes Brit [facility] Block pulse rate 78 /min Karla Block oxygen saturation, oximetry 98 % Karla Block blood pressure, diastolic 82 mm[Hg] Br ittany Block blood pressure, systolic 180 mm[Hg] Lisa ttany Block weight E&M 173 [lb_av] Karla Block respiratory rate E&M 16 /min [facility] Block height E&M 64 [in_i] [facility] blood pressure, diastolic 95 mm[Hg] Jose emelyNicolasaabiel Aguila blood pressure, systolic 182 mm[Hg] Farhana Aguila pulse rate 98 /min Joana Araiza oliver oxygen saturation, oximetry 97 % Joana Aguila respiratory rate E&M 18 /min Dano lutz Aguila Body Mass Index (Ratio) 33.81 kg/m2 Gloria Aguila weight E&M 197 [lb_av] Joana Araiza oliver blood pressure, diastolic 98 mm[Hg] Sarabjit chaparrolyndsey Garvinecs RN blood pressure, systolic 205 mm[Hg] Radames sta Virgieecs RN pulse rate 93 /min Guthrie Demecs R N oxygen saturation, oximetry 95 % Guthrie Cory RN respiratory rate E&M 18 /min Annie Demecs RN Body Mass Index (Ratio) 33.47 kg/m2 Sang Ray RN weight E&M 195 [lb_av] Guthrie Demecs R N blood pressure, diastolic 98 [...] Ray RN approved for 1 year per [place] Medicaid. 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 Will continue to monitor. [facility] :Blood pr essure control seems to [...] normal and she has been reassured. Alecia Lanrdum MD Cardiology :Her bloo d pressure remains [...] review lab testing. Orders: B eta-2 microglobulin (72487) KAPPA LIGHT CHAIN, FREE (70137) L AMBDA LIGHT CHAIN, FREE (03557) C OMPREHENSIVE METABOLIC PANEL W/EGFR (67624) E LECTROPHORESIS AND IMMUNOFIXATION, SERUM WITH TRACING (22033) A NA w/Reflex (405259) R HEUMATOID FACTOR (4418) P ORPHOBILINOGEN, QUANT., RANDOM URINE (6329) L DH (953175) A CUTE HEPATITIS PANEL (REFL) (87082) C RYOGLOBULIN (%CRYOCRIT), SERUM (08374) 9 9204 MOD Complex (CPT-28495) Terence Portillo MD : H er updated [...] One tab. twice daily Orders: E KG (CPT-20814) Deion Stoddard MD follow up: H er [...] arotid Doppler/Duplex: normal: (11/25/2007) Orders: E KG (CPT-93511) C omplete Echo (CPT-30627) Deion Stoddard MD chest pain:203/104 t juliette. [...] C- & P-ANCA TITERS AND MPO OR [place]-3 AB ANCA Panel ANCA SCREEN WITH REF SUDHIR TO C- & P-ANCA TITERS AND MPO OR [place]-3 AB ANCA Panel SED RATE BY MODIFIED [...] EKG Alecia Landrum MD complet ed SNOMED-CT: [id number] 494253 Current Medications Documented Terence Portillo MD completed SNOMED-CT: [id number] 513643 Current Medications Documented Terence Portillo MD completed EKG Deion Stoddard MD completed EKG Deion Stoddard MD completed EKG Alecia Landrum MD complet ed
--- OUTSIDE RECORDS SUMMARY | 2025-02-21 13:15 | XMS_ITS | Encounter Summary ---
Author Organization [facility] Address [address] [place] [address] Care Team Providers Care Flatbed Owner Operator Name Role Phone Unavailable Primary Care Provider Unavailabl e Reason for Referral * Radiology Services (Routine) - Authorized Specialty Diagnoses / Procedures Referred By Contac t Referred To Contact Diagnoses Plasma cell disorder Procedures XR BONE SURVEY COMPLETE Colin Diane MD [address] [place] [phone] Phone: tel: fax: Referral ID Status Reason Start Date Expiration Date V isits Requested Visits Authorized [id number] Authorized 02/21/2025 03/24/2026 1 1 Reason for Visit * Reason Comments Establish Care Encounter Details Date Type Department Care Team (Late st Contact Info) Description 02/21/2025 11:30 AM CDT Office Visit [facility] Oncology and Hematology - [place] [address] [place] [address] Colin Diane MD [address] [place] [address] Plasma cell disorder (Primary Dx) Social History Tobacco Use Types Packs/Day Years Used Date Smoking Tobacco: Never Smokeless Tobacco: Never Alcohol Use Standard Drinks/Week Comments Never 0 (1 standard drink = 0.6 oz pur e alcohol) Comments Unknown Sex and Gender Information Value Date Recorded Sex Assigned at Not on file Legal Sex Female 2:54 PM CDT Gender Identity Not on file Sexual Orientation Not on file documented as of this encounter Last Filed Vital Signs Vital Sign Reading [...] Mass Index 28.67 02/21/2025 10:57 AM CDT documented in this encounter Progress Notes * Colin Diane MD - 02/21/2025 11:20 AM CDT Hematology-oncology consult Note Requesting Physician Leon Hall MD Primary Care Physician No primary care provider on file. Problem list There is no problem list on file for this patient. Previous TREATMENT ? Measurable Disease ? Reason for Visit Eloisa Chowdhury is a 75 y.o. female who was referred for consultation for plasma cell disorder History of present illness This is a pleasant 75-year-old -[place] female with history of hypertension referred to me for abnormal serum protein electrophoresis. Patient denies any previous history of malignancy. She had 2 breast biopsy done on the left breast came back benign. Patient had labs done in January 2025 including serum protein electrophoresis that showed M spike of 0.6 g with total serum protein of 9.3. [place] and lambda light chains were both elevated with normal ratio. She denies any weight loss. She hassome leg spasm and discomfort for about 1 month duration. 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 Denies any other new complaints. Past Medical History Past Medical History: Diagnosis Date Congestive heart failure (CMS/HCC) Hyperlipidemia Hypertension Surgical History Past Surgical History: Procedure Laterality Date HX BREAST BIOPSY HX CARPAL TUNNEL RELEASE HX CHOLECYSTECTOMY HX OVARIAN CYST REMOVAL Medications Current Outpatient Medications Medication Sig Dispense Refill lisinopriL (PRINIVIL) 40 mg tablet Take 40 mg by mouth daily. NITROGLYCERIN ORAL Take by mouth Continuous as needed. hydroCHLOROthiazide 12.5 mg tablet Take 12.5 mg by mouth daily. No current facility-administered medications for this visit. Allergies No Known Allergies Immunizations: There is no immunization history on file for this patient. Family History Family History Problem Relation Name Age of Onset No Known Problems Father Myelodysplastic syndrome Mother No Known Problems Brother No Known Problems Brother No Known Problems Sister Breast Cancer Sister Heart Disease Sister Breast Cancer Sister Heart Disease Sister Hypertension Sister No Known Problems Child No Known Problems Child No Known Problems Granddaughter named as 3rd daughter Social History Social History Tobacco Use Smoking status: Never Smokeless tobacco: Never Substance Use Topics Alcohol use: Never Review of Systems Constitutional: Patient did not mention fever; no night sweats; no anorexia; no weight loss; no fatique NEENT: Patient did not mention headache; no change in vision; no change in hearing; no sore throat;no dysphagia Respiratory: Patient did not mention shortness of breath; no pleuritic chest pain; no cough; no hemoptysis Cardiac: Patient did not mention cardiac-like chest pain; no palpitations; no orthopnea; no PND; noDOE Breasts: Patient did not mention tenderness; no masses GI: Patient did not mention abdominal pain; no nausea; no vomiting; no diarrhea; no hematochezia; no melena : Patient did not mention dysuria; no frequency; no hesitancy; no hematuria 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: Musculosketetal: Patient did not mention bone pain; no arthralgia; no joint swelling; no myalgia; complain of leg cramps Skin: Patient did not mention pruritis; no rash; no petechiae; no ecchymoses Endocrine: Patient did not mention polydipsia; no polyuria; no unusual weight gain Neuro: Patient did not mention headache; no change in vision; no sensory changes; no muscle weakness; no confusion; no seizures Psych: Patient did not mention anxiety; no depression; Physical Exam Vitals: As per nursing note Constitutional: Well developed, well nourished, no acute distress, non-toxic appearance Teeth and gum. No signs of infection or swelling. Eyes: PERRL, conjunctiva normal HEENT: Atraumatic, external ears normal, nose normal, oropharynx moist, no pharyngeal exudates. no sinus tenderness Neck- normal range of motion, no tenderness, supple Respiratory: No respiratory distress, normal breath sounds, no rales, no wheezing Cardiovascular: Normal rate, normal rhythm, no murmurs, no gallops, no rubs GI: Soft, nondistended, normal bowel sounds, nontender, no splenomegaly, no hepatomegaly, no mass, no rebound, no guarding : No costovertebral angle tenderness Musculoskeletal: No edema, no tenderness, no deformities. Back- no tenderness Integument: Well hydrated, no rash, Digits and nails inspection normal Lymphatic: No lymphadenopathy noted Neurologic: Alert & oriented x 3, CN 2-12 normal, normal motor function, normal sensory function, no focal deficits noted Psychiatric: Speech and behavior appropriate ? labs No results found for this or any previous visit (from the past 24 hours). Labs from February 08 showed beta-2 microglobulin 2.7 immunofixation on the serum showed IgG monoclonal protein present free kappa light chain 90.8 with lambda light chain 57.5 ratio 1.5 total protein 9.3M spike 0.6 g creatinine 0.9 calcium 9.4 hemoglobin 12.5 WBC 2.5 platelet 195,000 Pathology ? Imaging & Other Studies Performance Status? Assessment / Plan: ? 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 Patient is a [id number] -[place] female who has been in good health except history of hypertension withoutany history of malignancy. Patient had serum protein electrophoresis performed that showed monoclonal IgG protein present. Clinically she is asymptomatic other than leg cramping and spasm and some peripheral neuropathy. I have discussed these labs with the patient in detail and discussed the significance of elevated monoclonal protein with possibility of developing multiple myeloma. At this time I will order the labs including CBC with differential, CMP, serum protein electrophoresis with immuno fixation, quantitative immunoglobulin and serum free light chain studies along with a skeletal survey. Bone marrow biopsy will be done based on the initial test result finding. I have answered all the questions to patient's satisfaction. Phone visit with me in 2 weeks. Hypertension. Patient is on lisinopril and hydrochlorothiazide. Stable. Thank you very much for allowing me to participate in Eloisa Chowdhury's evaluation and management. Please feel free to contact if I can be of any further assistance in your patient???s care requiring hematology or oncology evaluation. Sincerely, ? ? Colin Diane M.D. cell TOBACCO COUNSELING She is not a tobacco/nicotine user. Colin Diane MD ,02/21/2025 11:42 AM ? Total time spent 60 minutes, two third of the total time spent counseling patient [id number]. CC:?Leon Hall MD documented in this encounter Plan of Treatment Upcoming Encounters Date Type Department Care Team (Late st Contact Info) Description 03/07/2025 4:30 PM CDT Telephone Check Up [facility] Oncology and Hematology - [place] [address] [facility] [address] [place] [address] Colin Diane MD [address] [facility] [address] [place] [address] Scheduled Orders Name Type Priority Associated Diagnoses Orde r Schedule IMMUNOGLOBULINS IGG IGA IGM Lab Routine Plasma cell disorder Expected: 02/21/2025, Expires: 02/21/2026 KAPPA/LAMBDA, FREE LIGHT CHAINS Lab Routine Plasma cell disorder Expected: 02/21/2025, Expires: 02/21/2026 PROTEIN ELECTROPHORESIS W/REFLEX,SERUM Lab Routine Plasma cell disorder Expected: 02/21/2025, Expires: 02/21/2026 COMPREHENSIVE METABOLIC PANEL Lab Stat Plasma cell disorder Expected: 02/21/2025, Expires: 02/21/2026 CBC WITH DIFFERENTIAL Lab Stat Plasma cell disorder Expected: 02/21/2025, Expires: 02/21/2026 XR BONE SURVEY COMPLETE Imaging Routine Plasma cell disorder 1 Occurrences starting 02/21/2025 until 02/21/2026 documented as of this encounter Visit Diagnoses Diagnosis Plasma cell disorder- Primary Other specified disease of white blood cells documented in this encounter
--- OUTSIDE RECORDS SUMMARY | 2025-02-21 13:15 | XMS_ITS | Clinical Summary ---
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 Does NOT exclude the possibility of recent exposure to HCV. Current interpretive data was last revised on 22 Blood 04/17/2023 3:23 PM CDT 04/17/2023 4:09 PM CDT us Bertha Zhao MD LAB MICROBIOLOGY - GENERAL ORDERABLES Edited Result - Final JACLYN CELAYA [facility] Department [place] [address] from Last 3 Months or Most Recently Relevant to Health Maintenance Insurance MEDICARE Care Teams Scale Manager Relationship Specialty Start Date End Date No, Physician PCP - General 02/18/23
[2025-02-21 17:10] LABS: Immunoglobulin A 483 mg/dL (70-400); Immunoglobulin M 103 mg/dL (40-230)
[2025-02-21 19:32] LABS: Immunoglobulin G 3847 mg/dL (700-1600)
[2025-02-23 12:03] LABS: Protein, Total 9.2 g/dL (6.1-8.1)
[2025-02-23 15:23] LABS: Kappa\\Lambda Light Chains 1.75 (0.26-1.65); Lambda Light Chain 47.3 mg/L (5.7-26.3)
== END 2025-02-21 11:44 | disposition home or self-care (01) ==
LOC: ANHLAB 11:44
PROVIDERS: PCP Internal Medicine; Visit Provider Internal Medicine Hematology & Oncology
DX: D72.9 Disorder of white blood cells, unspecified (principal)
CPT/HCPCS: 36415; 80053; 82784; 83883; 84155; 84165; 85025

== ENCOUNTER 2025-02-24 16:48 | Outpatient (CLI) | payer MEDICARE, SELFPAY ==
--- NOTE | ~2025-02-24 | XR_ITS ---
Skeletal survey Clinical history neoplasm cell disorder TECHNIQUE: Multiple radiographs of the skeleton were performed. FINDINGS: Lungs are clear, without focal consolidation or pleural effusion. Cardiac silhouette unrema rkable. No fracture or dislocation seen in the visualized skeleton. There is 3 mm retrolisthesis of C5 over C 6, with advanced degenerative disc narrowing at C5-C6. No lytic lesion identified in the skeleton. Th ere is 7 mm anterolisthesis of L3 over L4. There is facet joint arthropathy throughout the lumbar spi ne. There is multilevel mild to moderate degenerative disc narrowing the thoracic spine. Soft tissues are unremarkable. IMPRESSION: No lytic or destructive lesion identified. No fracture or dislocation. 3 mm retrolisthesis of C5 over C6. 7 mm anterolisthesis of L3 over L4. Degenerative changes in the spine, as above. Reviewed, dictated and finalized at [facility].
--- OUTSIDE RECORDS SUMMARY | 2025-02-24 16:52 | XMS_ITS | Encounter Summary ---
Author Organization [facility] Address [address] [place] [address] Care Team Providers Care Legislative Advocate Name Role Phone Unavailable Primary Care Provider Unavailabl e Encounter Details Date Type Department Care Team (Late st Contact Info) Description 02/22/2025 External Device Data [facility] ABSTRACTION Provider, Abstract NO ADDRESS ON FILE Social History Tobacco Use Types Packs/Day Years [...] on file documented as of this encounter Plan of Treatment Upcoming Encounters Date Type Department Care Team (Late st Contact Info) Description 03/07/2025 4:30 PM CDT Telephone Check Up [facility] Oncology and Hematology - [place] [address] [place] [address] [facility] [address] [place] [address] Colin Diane MD [address] [facility] [address] [place] [address] documented as of this encounter Visit Diagnoses Not on filedocumented in this encounter
--- OUTSIDE RECORDS SUMMARY | 2025-02-24 16:52 | XMS_ITS | Encounter Summary ---
Author Organization [facility] MERARY Hill [facility] Address [address] [place] [address] Care Team Providers Care Configuration Management Advisor Name Role Phone Unavailable Primary Care Provider Unavailabl e Encounter Details Date Type Department Care Team (Late Contact Info) Description 02/23/2025 Abstract [facility] Oncology and Hematology - [place] [address] [place] [address] Colin Diane MD [address] [place], [place] [address] [address] [place] [phone] Social History Tobacco Use Types Packs/Day Years [...] Encounters Date Type Department Care Team (Late Contact Info) Description 03/07/2025 4:30 PM CDT Telephone Check Up [facility] Oncology and Hematology - [place] [address] [place] [address] [place] [address] [place], [place] [address] [address] [place] [phone] documented as of this encounter Visit Diagnoses Not on filedocumented in this encounter
--- OUTSIDE RECORDS SUMMARY | 2025-02-24 16:52 | XMS_ITS | Encounter Summary ---
Author Organization [facility] MERARY Hill [facility] Address [address] [place] [address] Care Team Providers Care Material Requisitioner Name Role Phone Unavailable Primary Care Provider Unavailabl e Encounter Details Date Type Department Care Team ([facility] Contact Info) Description 02/23/2025 Orders Only [facility] Oncology and Hematology [place] [address] [place] [address] Colin Diane MD [address] [place], [place] [address] [address] [place] [phone] Social History Tobacco Use Types Packs/Day [...] Upcoming Encounters Date Type Department Care Team ([facility] Contact Info) Description 03/07/2025 4:30 PM CDT Telephone Check Up [facility] Oncology and Hematology - [place] [address] [place] [address] Colin Diane MD [facility] [address] [place] [phone] documented as of this encounter Procedures Procedure Name Priority Date/Time Associated Diagnosis Comments KAPPA/LAMBDA LIGHT CHAINS Routine 02/21/2025 4:17 PM CDT documented in this encounter Results * KAPPA/LAMBDA, FREE LIGHT CHAINS (02/21/2025 4:17 PM CDT) Blood us Colin Diane MD CHEMISTRY ORDERABLES Final Resu lt documented in this encounter Visit Diagnoses Not on filedocumented in this encounter
--- OUTSIDE RECORDS SUMMARY | 2025-02-24 16:52 | XMS_ITS | Encounter Summary ---
Author Organization [facility] MERARY Hill [facility] Address [address] [place] [address] Care Team Providers Care Blocking Machine Operator Second Name Role Phone Unavailable Primary Care Provider Unavailabl e Encounter Details Date Type Department Care Team ([facility] Contact Info) Description 02/22/2025 Orders Only [facility] Oncology and Hematology [facility] [address] [place] [address] Colin Diane MD [address] [place], [place] [address] [address] [place] [phone] Social History Tobacco Use Types Packs/Day [...] Upcoming Encounters Date Type Department Care Team ([facility] Contact Info) Description 03/07/2025 4:30 PM CDT Telephone Check Up [facility] Oncology and Hematology [place] [address] [place] [address] Colin Diane MD [address] [place], [place] [address] [address] [place] [phone] documented as of this encounter Procedures Procedure Name Priority Date/Time Associated Diagnosis Comments IMMUNOGLOBULINS IGG IGA IGM Routine 02/21/2025 11:05 AM CDT COMPREHENSIVE METABOLIC PANEL Routine 02/21/2025 10:08 AM CDT documented in this encounter Results * IMMUNOGLOBULINS IGG IGA IGM (02/21/2025 11:05 AM CDT) Blood us Colin Diane MD CHEMISTRY ORDERABLES Final Resu lt * COMPREHENSIVE METABOLIC PANEL (02/21/2025 10:08 AM CDT) Blood us Colin Diane MD CHEMISTRY ORDERABLES Final Resu lt documented in this encounter Visit Diagnoses Not on filedocumented in this encounter
--- OUTSIDE RECORDS SUMMARY | 2025-02-24 16:53 | XMS_ITS | Data Portability ---
Author Organization [facility] [employer], Main Office Address [address] [place] [address] Assessment Encounter Date Assessment Date Assessment LastModified by Organization Details LastModified Time 03/24/2024 03/24/2024 I have reconcile d the patient's medications post their discharge from inpatient facility. [email or web address] Not available 03/24/2024 14:43:12 02/08/2025 02/08/2025 Skin lesion of R anterior shoulder, possible SK vs. melanoma process. will proceed with excisional biopsy per patient preference. Lesion of anterior chest characteristic of subcutaneous cyst, will also excise for elimination. Pt scheduled f/u for procedures next week. Not available 02/08/2025 11:41:03 02/15/2025 02/15/2025 Excision of mass of right shoulder and anterior chest wall. Specimens sent to pathology x 2. Will f/u in 10-14 days for suture removal and pathology review. Pt agreeable. Post procedural instructions provided. Not available 02/15/2025 19:50:31 02/24/2025 02/24/2025 status post excision benign lesions right anterior shoulder and anterior chest wall. Wounds healing appropriately. Sutures removed. Follow up here p.r.n. Not available 02/24/2025 10:51:59 Plan of Treatment Reminders Order Date Submit Date Provider Last Modified By Organization Details Last Modified Time Details Appointments Follow Up 15 2024 09:30A Sergio almazan MD Not available Not available Not available Lab D-dimer, quant, plasma 2024 025 [facility], [address] [place], [address], 02/03/2025 19:09:13 CBC w/ auto diff 2024 025 [facility], [address] [place], [address], 02/03/2025 18:31:12 CMP, serum or plasma 2024 025 [facility], [address] [place], [address], 02/03/2025 18:32:38 lipid panel, serum 2024 025 [facility], [address] [place], [address], 02/03/2025 18:35:10 TSH, serum or plasma 2024 025 [facility], [address] [place], [address], 02/03/2025 19:07:32 T4, free, serum 2024 025 [facility], [address] [place], [address], 02/03/2025 19:00:56 CBC w/ auto diff 2023 024 [facility], [address] [place], [address], 03/24/2024 16:31:08 CMP, serum or plasma 2023 024 [facility], [address] [place], [address], 03/24/2024 17:18:48 Referral None recorded . Procedures None recorded . Surgeries None recorded . Imaging None recorded . Medication Orders None recorded . Patient TargetsNo targets recorded. Patient Instructions Encounter Date Encounter Id Patient Instructions Last Modified By Organization Details Last Modified Time 03/24/2024 [id number] Thank you for yo ur visit to our office today. We would like to request that you reach out to your referring or previous provider and request that they send us a Summary of Care in electronic form, so that we may have it on file in your medical record. At your visit, we had the medical records we needed to provide you with the best possible care; however, for insurance purposes, an electronic Summary of Care is beneficial. Thank you for your assistance in obtaining this information and we look forward to providing continued care to you. Please review your medication list from the Summary of Care for this visit. If there are any differences from what you are currently taking at home, please call us to discuss. [email or web address] Not available 03/24/2024 14:43:12 Homebound Status : Does not meet homebound status Required Home Health Services: none Durable Medical Equipment needed: Transition of care for atypical chest pain, dyspnea on exertion as well as essential hypertension. Was slightly anemic on the recent laboratory studies. The D-dimer was marginally elevated 0.65 but when compensated for the patient's age was within normal limits. 0 chest x-ray was performed. There is no CTA or pulmonary angiogram done. According the patient she may have had several episodes of hypoxemia. Will need a cardiac consult for the atypical chest pain and hyperlipidemia along with chest x-ray and pulmonary functions. Will follow-up in four weeks. Additional Orders and/or Directives: 1. Chest x-ray four shortness of breath 2. Pulmonary functions 3. Cardiac consult with [facility] for atypical chest pain and hyperlipidemia Next Appointment: 4 Weeks Approximate Date: 04/21/2024 Portions of the record may have been created with voice recognition software. Occasional wrong-word or [id number]-b-[id number] substitutions may have occurred due to the inherent limitations of voice recognition software. Read the chart carefully and recognize, using context, where substitutions have occurred. Billing Guidelines CPT code 39673- Transitional Care Management services with moderate medical decision complexity ([id number] visit within 14 days of discharge). CPT code 41860- Transitional Care Management services with high medical decision complexity ([id number]-[id number] visit within 7 days of discharge). [email or web address] Not available 03/24/2024 15:10:12 02/03/2025 [id number] Medicare [facility] s evaluation risk assessment stable. Follow-up for hypertension, GERD, hyperlipidemia and leg pain. Will check blood work consisting of CBC, CMP, lipid, thyroid, D-dimer. Is overdue for colonoscopy. Recheck blood pressure in one week if no improvement may need either add or increase dosage of current medications. Additional Orders - Directives - Recommendations 1. follow-up colonoscopy 2. Recheck blood pressure in one week 3. Venous Doppler of the left leg for swelling and pain Follow Up: 6 Months Approximate Date: 08/02/2025 Portions of record are template driven. When necessary additional context will be provided. Additionally some portions have been created with voice recognition software. Occasional wrong-word or jylui-k-egtl substitutions may have occurred due to the inherent limitations of voice recognition software. Read the chart carefully and recognize, using context, where substitutions may have occurred. Created: Leon Hall M.D. 02.03.2025 10:37 AM [email or web address] Not available 02/03/2025 11:37:34 Reason for Referral None Reported. Results Created Date Observation Date Name Description Value Unit Range Abnormal Flag Note LastModifiedBy Organization Detail LastModifiedTime 03/24/20 24 03/24/2024 CBC/C OMPLE TE BLD COUNT W/DIF F white blood cells 2.9 x10'3 /uL 4.2-10 .8 low Not Available [facility] (Lab) [address] [place], [address], 03/24/2024 16:31:07 03/24/20 24 03/24/2024 CBC/C OMPLE TE BLD COUNT W/DIF F red blood cells 4.05 x10'6 /uL 3.80-5 .20 Not Available [facility] (Lab) [address] [place], [address], 03/24/2024 16:31:07 03/24/20 24 03/24/2024 CBC/C OMPLE TE BLD COUNT W/DIF F hemoglobin 11.9 g/dL 12.0-1 5.6 low Not Available [facility] (Lab) [address] [place], [address], 03/24/2024 16:31:07 03/24/20 24 03/24/2024 CBC/C OMPLE TE BLD COUNT W/DIF F hematocrit 37.6 % 35.7-4 5.7 Not Available [facility] (Lab) [address] [place], [address], 03/24/2024 16:31:07 03/24/20 24 03/24/2024 CBC/C OMPLE TE BLD COUNT W/DIF F mean red cell volume 92.8 fL 82.0-9 9.0 Not Available [facility] (Lab) [address] [place], [address], 03/24/2024 16:31:07 03/24/20 24 03/24/2024 CBC/C OMPLE TE BLD COUNT W/DIF F mean red cell hemoglobin 29.4 pg 27.0-3 3.0 Not Available [facility] (Lab) [address] [place], [address], 03/24/2024 16:31:07 03/24/20 24 03/24/2024 CBC/C OMPLE TE BLD COUNT W/DIF F mean RBC HGB concentratio n 31.6 g/dL 31.0-3 6.0 Not Available [facility] (Lab) [address] [place], [address], 03/24/2024 16:31:07 03/24/20 24 03/24/2024 CBC/C OMPLE TE BLD COUNT W/DIF F red cell distribution width 14.0 % 11.8-1 5.5 Not Available [facility] (Lab) [address] [place], [address], 03/24/2024 16:31:07 03/24/20 24 03/24/2024 CBC/C OMPLE TE BLD COUNT W/DIF F platelets 186 x10'3 /uL 150-40 0 Not Available [facility] (Lab) [address] [place], [address], 03/24/2024 16:31:07 03/24/20 24 03/24/2024 CBC/C OMPLE TE BLD COUNT W/DIF F mean platelet volume 10.9 fL 9.0-12 .4 Not Available [facility] (Lab) [address] [place], [address], 03/24/2024 16:31:07 03/24/20 24 03/24/2024 CBC/C OMPLE TE BLD COUNT W/DIF F neutrophils 40.5 % 39.0-7 2.0 Not Available [facility] (Lab) [address] [place], [address], 03/24/2024 16:31:07 03/24/20 24 03/24/2024 CBC/C OMPLE TE BLD COUNT W/DIF F lymphocytes 44.6 % 16.0-4 7.0 Not Available [facility] (Lab) [address] [place], [address], 03/24/2024 16:31:07 03/24/20 24 03/24/2024 CBC/C OMPLE TE BLD COUNT W/DIF F monocytes 8.0 % 5.0-12 .0 Not Available [facility] (Lab) [address] [place], [address], 03/24/2024 16:31:07 03/24/20 24 03/24/2024 CBC/C OMPLE TE BLD COUNT W/DIF F eosinophils 6.3 % 1.0-7. 0 Not Available [facility] (Lab) [address] [place], [address], 03/24/2024 16:31:07 03/24/20 24 03/24/2024 CBC/C OMPLE TE BLD COUNT W/DIF F basophils 0.3 % 0.0-2. 0 Not Available [facility] (Lab) [address] [place], [address], 03/24/2024 16:31:07 03/24/20 24 03/24/2024 CBC/C OMPLE TE BLD COUNT W/DIF F immature granulocytes 0.3 % 0.00-0 .50 Not Available [facility] (Lab) [address] [place], [address], 03/24/2024 16:31:07 03/24/20 24 03/24/2024 CBC/C OMPLE TE BLD COUNT W/DIF F neutrophils, absolute count 1.16 x10'3 /uL 1.5-8. 0 low Not Available [facility] (Lab) [address] [place], [address], 03/24/2024 16:31:07 03/24/20 24 03/24/2024 CBC/C OMPLE TE BLD COUNT W/DIF F lymphocytes, absolute count 1.28 x10'3 /uL 1.07-3 .43 Not Available [facility] (Lab) [address] [place], [address], 03/24/2024 16:31:07 03/24/20 24 03/24/2024 CBC/C OMPLE TE BLD COUNT W/DIF F monocytes, absolute count 0.23 x10'3 /uL 0.29-0 .99 low Not Available [facility] (Lab) [address] [place], [address], 03/24/2024 16:31:07 03/24/20 24 03/24/2024 CBC/C OMPLE TE BLD COUNT W/DIF F eosinophils, absolute count 0.18 x10'3 /uL 0.02-0 .53 Not Available [facility] (Lab) [address] [place], [address], 03/24/2024 16:31:07 03/24/20 24 03/24/2024 CBC/C OMPLE TE BLD COUNT W/DIF F basophils, absolute count 0.01 x10'3 /uL 0.01-0 .08 Not Available [facility] (Lab) [address] [place], [address], 03/24/2024 16:31:07 03/24/20 24 03/24/2024 CBC/C OMPLE TE BLD COUNT W/DIF F immature granulocytes ,absolute 0.01 x10'3 /uL 0.00-0 .05 Not Available [facility] (Lab) [address] [place], [address], 03/24/2024 16:31:07 03/24/20 24 03/24/2024 CBC/C OMPLE TE BLD COUNT W/DIF F nucleated red blood cells 0.0 % -0 Not Available [facility] (Lab) [address] [place], [address], 03/24/2024 16:31:07 03/24/20 24 03/24/2024 CBC/C OMPLE TE BLD COUNT W/DIF F NRBC# 0.00 x10'3 /uL Not Available [facility] (Lab) [address] [place], [address], 03/24/2024 16:31:07 03/24/20 24 03/24/2024 COMPR EHENS LALO METAB OLIC PANEL sodium 137 mmol/ L 137-14 5 Not Available [facility] (Lab) [address] [place], [address], 03/24/2024 17:18:48 03/24/20 24 03/24/2024 COMPR EHENS LALO METAB OLIC PANEL potassium 3.9 mmol/ L 3.5-5. 1 Not Available [facility] (Lab) [address] [place], [address], 03/24/2024 17:18:48 03/24/20 24 03/24/2024 COMPR EHENS LALO METAB OLIC PANEL chloride 107 mmol/ L 98-107 Not Available [facility] (Lab) [address] [place], [address], 03/24/2024 17:18:48 03/24/20 24 03/24/2024 COMPR EHENS LALO METAB OLIC PANEL carbon dioxide 27 mmol/ L 22-30 Not Available [facility] (Lab) [address] [place], [address], 03/24/2024 17:18:48 03/24/20 24 03/24/2024 COMPR EHENS LALO METAB OLIC PANEL anion gap 6.9 mmol/ L 14-22 low Not Available [facility] (Lab) [address] [place], [address], 03/24/2024 17:18:48 03/24/20 24 03/24/2024 COMPR EHENS LALO METAB OLIC PANEL glucose 94 mg/dL 70-99 Not Available [facility] (Lab) [address] [place], [address], 03/24/2024 17:18:48 03/24/20 24 03/24/2024 COMPR EHENS LALO METAB OLIC PANEL BUN 18 mg/dL 8-19 Not Available [facility] (Lab) [address] [place], [address], 03/24/2024 17:18:48 03/24/20 24 03/24/2024 COMPR EHENS LALO METAB OLIC PANEL creatinine 0.99 mg/dL 0.66-1 .25 Not Available [facility] (Lab) [address] [place], [address], 03/24/2024 17:18:48 03/24/20 24 03/24/2024 COMPR EHENS LALO METAB OLIC PANEL GFR >60 Refer ence Range : [place] ge GFR Healt hy Adult : >60 mL/mi n/1.7 3 m2 Chron ic Kidne y Disea se: 15-60 mL/mi n/1.7 3 m2 Kidne y Failu re: <15/m L/min /1.73 m2 www.n iddk. nih.g ov The MDRD study equat ion has not been valid ated in child anthony <18 years of age; pregn ant women ; the elder ly >85 years of age; or in some racia l or ethni c subgr oups, such as Hispa nics. Outsi de the valid ated suzanne eters , estim ated GFR is less accur ate, requi ring clini madhav judgm ent on a case- by-ca se basis . Clini madhav inter preta tion for other races and ages must be made by the clini jeronimo. The MDRD study equat ion has not been valid ated for the evalu ation of serum creat inine relat ed to nutri jeanmarie l statu s or medic ation usage . For perso ns <18 years of age, a pedia tric GFR calcu lator is avail able on the [facility] websi te: https ://de w.ismael paezy.o rg/pr ofess ional s/kdo qi/gf r_cal culat or Not Available [facility] (Lab) [address] [place], [address], 03/24/2024 17:18:48 03/24/20 24 03/24/2024 COMPR EHENS LALO METAB OLIC PANEL alkaline phosphatase 85 U/L 38-126 Not Available [facility] (Lab) [address] [place], [address], 03/24/2024 17:18:48 03/24/20 24 03/24/2024 COMPR EHENS LALO METAB OLIC PANEL alanine aminotransfe rase 29 U/L 0-35 Not Available [facility] (Lab) [address] [place], [address], 03/24/2024 17:18:48 03/24/20 24 03/24/2024 COMPR EHENS LALO METAB OLIC PANEL aspartate aminotransfe rase 69 U/L 15-37 high Not Available [facility] (Lab) [address] [place], [address], 03/24/2024 17:18:48 03/24/20 24 03/24/2024 COMPR EHENS LALO METAB OLIC PANEL bilirubin, total 1.10 mg/dL 0.20-1 .30 Not Available [facility] (Lab) [address] [place], [address], 03/24/2024 17:18:48 03/24/20 24 03/24/2024 COMPR EHENS LALO METAB OLIC PANEL calcium 9.3 mg/dL 8.4-10 .2 Not Available [facility] (Lab) [address] [place], [address], 03/24/2024 17:18:48 03/24/20 24 03/24/2024 COMPR EHENS LALO METAB OLIC PANEL total protein 9.9 g/dL 6.3-8. 2 high Not Available [facility] (Lab) [address] [place], [address], 03/24/2024 17:18:48 03/24/20 24 03/24/2024 COMPR EHENS LALO METAB OLIC PANEL albumin 4.4 g/dL 3.0-4. 4 Not Available [facility] (Lab) [address] [place], [address], 03/24/2024 17:18:48 03/24/20 24 03/24/2024 COMPR EHENS LALO METAB OLIC PANEL globulin 5.5 g/dL 2.6-4. 2 high Not Available [facility] (Lab) [address] [place], [address], 03/24/2024 17:18:48 03/24/20 24 03/24/2024 COMPR EHENS LALO METAB OLIC PANEL A/G ratio 0.8 ratio 1.0-2. 0 low Not Available [facility] (Lab) [address] [place], [address], 03/24/2024 17:18:48 02/04/20 25 02/03/2025 CBC/C OMPLE TE BLD COUNT W/DIF F white blood cells 2.5 x10'3 /uL 4.2-10 .8 low Not Available [facility]Lab[facility] [address] [facility] [place], [address], 02/03/2025 18:31:12 02/04/20 25 02/03/2025 CBC/C OMPLE TE BLD COUNT W/DIF F red blood cells 4.24 x10'6 /uL 3.80-5 .20 Not Available [facility] (Lab) [address] [place], [address], 02/03/2025 18:31:12 02/04/20 25 02/03/2025 CBC/C OMPLE TE BLD COUNT W/DIF F hemoglobin 12.5 g/dL 12.0-1 5.6 Not Available [facility] (Lab) [address] [place], [address], 02/03/2025 18:31:12 02/04/20 25 02/03/2025 CBC/C OMPLE TE BLD COUNT W/DIF F hematocrit 39.5 % 35.7-4 5.7 Not Available [facility] (Lab) [address] [place], [address], 02/03/2025 18:31:12 02/04/20 25 02/03/2025 CBC/C OMPLE TE BLD COUNT W/DIF F mean red cell volume 93.2 fL 82.0-9 9.0 Not Available [facility] (Lab) [address] [place], [address], 02/03/2025 18:31:12 02/04/20 25 02/03/2025 CBC/C OMPLE TE BLD COUNT W/DIF F mean red cell hemoglobin 29.5 pg 27.0-3 3.0 Not Available [facility] (Lab) [address] [place], [address], 02/03/2025 18:31:12 02/04/20 25 02/03/2025 CBC/C OMPLE TE BLD COUNT W/DIF F mean RBC HGB concentratio n 31.6 g/dL 31.0-3 6.0 Not Available [facility] (Lab) [address] [place], [address], 02/03/2025 18:31:12 02/04/20 25 02/03/2025 CBC/C OMPLE TE BLD COUNT W/DIF F red cell distribution width 14.5 % 11.8-1 5.5 Not Available [facility] (Lab) [address] [place], [address], 02/03/2025 18:31:12 02/04/20 25 02/03/2025 CBC/C OMPLE TE BLD COUNT W/DIF F platelets 195 x10'3 /uL 150-40 0 Not Available [facility] (Lab) [address] [place], [address], 02/03/2025 18:31:12 02/04/20 25 02/03/2025 CBC/C OMPLE TE BLD COUNT W/DIF F mean platelet volume 10.7 fL 9.0-12 .4 Not Available [facility] (Lab) [address] [place], [address], 02/03/2025 18:31:12 02/04/20 25 02/03/2025 CBC/C OMPLE TE BLD COUNT W/DIF F neutrophils 43.8 % 39.0-7 2.0 Not Available [facility] (Lab) [address] [place], [address], 02/03/2025 18:31:12 02/04/20 25 02/03/2025 CBC/C OMPLE TE BLD COUNT W/DIF F lymphocytes 43.9 % 16.0-4 7.0 Not Available [facility] (Lab) [address] [place], [address], 02/03/2025 18:31:12 05/22/20 25 02/03/2025 CBC/C OMPLE TE BLD COUNT W/DIF F monocytes 8.3 % 5.0-12 .0 Not Available [facility] (Lab) [address] [place], [address], 02/03/2025 18:31:12 02/04/20 25 02/03/2025 CBC/C OMPLE TE BLD COUNT W/DIF F eosinophils 2.8 % 1.0-7. 0 Not Available [facility] (Lab) [address] [place], [address], 02/03/2025 18:31:12 02/04/20 25 02/03/2025 CBC/C OMPLE TE BLD COUNT W/DIF F basophils 0.8 % 0.0-2. 0 Not Available [facility] (Lab) [address] [place], [address], 02/03/2025 18:31:12 02/04/20 25 02/03/2025 CBC/C OMPLE TE BLD COUNT W/DIF F immature granulocytes 0.4 % 0.00-0 .50 Not Available [facility] (Lab) [address] [place], [address], 02/03/2025 18:31:12 02/04/20 25 02/03/2025 CBC/C OMPLE TE BLD COUNT W/DIF F neutrophils, absolute count 1.11 x10'3 /uL 1.5-8. 0 low Not Available [facility] (Lab) [address] [place], [address], 02/03/2025 18:31:12 02/04/20 25 02/03/2025 CBC/C OMPLE TE BLD COUNT W/DIF F lymphocytes, absolute count 1.11 x10'3 /uL 1.07-3 .43 Not Available [facility] (Lab) [address] [place], [address], 02/03/2025 18:31:12 02/04/20 25 02/03/2025 CBC/C OMPLE TE BLD COUNT W/DIF F monocytes, absolute count 0.21 x10'3 /uL 0.29-0 .99 low Not Available [facility] (Lab) [address] [place], [address], 02/03/2025 18:31:12 02/04/20 25 02/03/2025 CBC/C OMPLE TE BLD COUNT W/DIF F eosinophils, absolute count 0.07 x10'3 /uL 0.02-0 .53 Not Available [facility] (Lab) [address] [place], [address], 02/03/2025 18:31:12 02/04/20 25 02/03/2025 CBC/C OMPLE TE BLD COUNT W/DIF F basophils, absolute count 0.02 x10'3 /uL 0.01-0 .08 Not Available [facility] (Lab) [address] [place], [address], 02/03/2025 18:31:12 02/04/20 25 02/03/2025 CBC/C OMPLE TE BLD COUNT W/DIF F immature granulocytes ,absolute 0.01 x10'3 /uL 0.00-0 .05 Not Available [facility] (Lab) [address] [place], [address], 02/03/2025 18:31:12 02/04/20 25 02/03/2025 CBC/C OMPLE TE BLD COUNT W/DIF F nucleated red blood cells 0.0 % -0 Not Available [facility] (Lab) [address] [place], [address], 02/03/2025 18:31:12 02/04/20 25 02/03/2025 CBC/C OMPLE TE BLD COUNT W/DIF F NRBC# 0.00 x10'3 /uL Not Available [facility] (Lab) [address] [place], [address], 02/03/2025 18:31:12 02/04/20 25 02/03/2025 COMPR EHENS LALO METAB OLIC PANEL sodium 140 mmol/ L 137-14 5 Not Available [facility] (Lab) [address] [place], [address], 02/03/2025 18:32:38 02/04/20 25 02/03/2025 COMPR EHENS LALO METAB OLIC PANEL potassium 4.0 mmol/ L 3.5-5. 1 Not Available [facility] (Lab) [address] [place], [address], 02/03/2025 18:32:38 02/04/20 25 02/03/2025 COMPR EHENS LALO METAB OLIC PANEL chloride 105 mmol/ L 98-107 Not Available [facility] (Lab) [address] [place], [address], 02/03/2025 18:32:38 02/04/20 25 02/03/2025 COMPR EHENS LALO METAB OLIC PANEL carbon dioxide 27 mmol/ L 22-30 Not Available [facility] (Lab) [address] [place], [address], 02/03/2025 18:32:38 02/04/20 25 02/03/2025 COMPR EHENS LALO METAB OLIC PANEL anion gap 12.0 mmol/ L 14-22 low Not Available [facility] (Lab) [address] [place], [address], 02/03/2025 18:32:38 02/04/20 25 02/03/2025 COMPR EHENS LALO METAB OLIC PANEL glucose 100 mg/dL 70-99 high Not Available [facility] (Lab) [address] [place], [address], 02/03/2025 18:32:38 02/04/20 25 02/03/2025 COMPR EHENS LALO METAB OLIC PANEL BUN 15 mg/dL 8-19 Not Available [facility] (Lab) [address] [place], [address], 02/03/2025 18:32:38 02/04/20 25 02/03/2025 COMPR EHENS LALO METAB OLIC PANEL creatinine 0.96 mg/dL 0.66-1 .25 Not Available [facility] (Lab) [address] [place], [address], 02/03/2025 18:32:38 02/04/20 25 02/03/2025 COMPR EHENS LALO METAB OLIC PANEL GFR >60 Refer ence Range : [place] ge GFR Healt hy Adult : >60 mL/mi n/1.7 3 m2 Chron ic Kidne y Disea se: 15-60 mL/mi n/1.7 3 m2 Kidne y Failu re: <15/m L/min /1.73 m2 www.n iddk. nih.g ov The MDRD study equat ion has not been valid ated in child anthony <18 years of age; pregn ant women ; the elder ly >85 years of age; or in some racia l or ethni c subgr oups, such as Raul nics. Outsi de the valid ated uszanne eters , estim ated GFR is less accur ate, requi ring clini madhav judgm ent on a case- by-ca se basis . Clini madhav inter preta tion for other races and ages must be made by the clini jeronimo. The MDRD study equat ion has not been valid ated for the evalu ation of serum creat inine relat ed to nutri jeanmarie l statu s or medic ation usage . For perso ns <18 years of age, a pedia tric GFR calcu lator is avail able on the F websi te: https ://de collins.o rg/pr ofess ional s/kdo qi/gf r_cal culat or Not Available [facility] (Lab) [address] [place], [address], 02/03/2025 18:32:38 02/04/20 25 02/03/2025 COMPR EHENS LALO METAB OLIC PANEL alkaline phosphatase 93 U/L 38-126 Not Available [facility] (Lab) [address] [place], [address], 02/03/2025 18:32:38 02/04/20 25 02/03/2025 COMPR EHENS LALO METAB OLIC PANEL alanine aminotransfe rase 22 U/L 0-35 Not Available [facility] (Lab) [address] [place], [address], 02/03/2025 18:32:38 02/04/20 25 02/03/2025 COMPR EHENS LALO METAB OLIC PANEL aspartate aminotransfe rase 43 U/L 15-37 high Not Available [facility] (Lab) [address] [place], [address], 02/03/2025 18:32:38 02/04/20 25 02/03/2025 COMPR EHENS LALO METAB OLIC PANEL bilirubin, total 1.00 mg/dL 0.20-1 .30 Not Available [facility] (Lab) [address] [place], [address], 02/03/2025 18:32:38 02/04/20 25 02/03/2025 COMPR EHENS LALO METAB OLIC PANEL calcium 9.4 mg/dL 8.4-10 .2 Not Available [facility] (Lab) [address] [place], [address], 02/03/2025 18:32:38 02/04/20 25 02/03/2025 COMPR EHENS LALO METAB OLIC PANEL total protein 9.2 g/dL 6.3-8. 2 high Not Available [facility] (Lab) [address] [place], [address], 02/03/2025 18:32:38 02/04/20 25 02/03/2025 COMPR EHENS LALO METAB OLIC PANEL albumin 4.0 g/dL 3.0-4. 4 Not Available [facility] (Lab) [address] [place], [address], 02/03/2025 18:32:38 02/04/20 25 02/03/2025 COMPR EHENS LALO METAB OLIC PANEL globulin 5.2 g/dL 2.6-4. 2 high Not Available [facility] (Lab) [address] [place], [address], 02/03/2025 18:32:38 02/04/20 25 02/03/2025 COMPR EHENS LALO METAB OLIC PANEL A/G ratio 0.8 ratio 1.0-2. 0 low Not Available [facility] (Lab) [address] [place], [address], 02/03/2025 18:32:38 02/04/20 25 02/03/2025 LIPID PANEL cholesterol 225 mg/dL 140-19 9 high NIH JIM NSUS RECOM MENDA TION FOR ARASELI STERO L: ADULT CHILD LOW RISK: <200 <170 BORDE RLINE : <200- 239 ----- HIGH RISK: >240 >200 Not Available [facility] (Lab) [address] [place], [address], 02/03/2025 18:35:10 02/04/20 25 02/03/2025 LIPID PANEL triglyceride s 72 mg/dL 0-150 NIH JIM NSUS REPOR T RECOM MENDA TION FOR TRIGL YCERI TANK: ADULT CHILD LOW RISK: <150 ----- BODER LINE: 150-1 99 ----- HIGH RISK: >200 ----- Not Available [facility] (Lab) [address] [place], [address], 02/03/2025 18:35:10 02/04/20 25 02/03/2025 LIPID PANEL HDL cholesterol 70 mg/dL 40- Not Available [facility] (Lab) [address] [place], [address], 02/03/2025 18:35:10 02/04/2002/03/2025 LIPID PANEL LDL cholesterol, calculated 141 mg/dL 0-130 high NIH JIM NSUS REPOR T RECOM MENDA TIONS FOR LDL: ADULT CHILD LOW RISK <130 <110 (OPTI MAL LDL) <100 ----- BORDE RLINE : 130-1 59 ----- HIGH RISK: >160 >130 A TRIGL YCERI DE RESUL T >400 INVAL IDATE S THE CALCU LATIO N FOR LDL FRACT IONAT ION - THE LDL RESUL T WILL NOT BE REPOR JUJU. Not Available [facility] (Lab) [address] [place], [address], 02/03/2025 18:35:10 02/04/20 25 02/03/2025 T4 FREE free T4 1.22 NG/dL 0.78-2 .19 Not Available [facility] (Lab) [address] [place], [address], 02/03/2025 19:00:56 02/04/2002/03/2025 TSH thyroid-stim ulating hormone 1.400 uIU/m L 0.465- 4.680 Not Available [facility] (Lab) [address] [place], [address], 02/03/2025 19:07:32 02/04/2002/03/2025 D-DIM ER D-dimer 6.10 mg/L_ feu 0.00-0 .49 high D-Dim er negat lalo predi ctive value to exclu de DVT and PE is <0.50 mg/L (FEU) . Not Available [facility] (Lab) [address] [place], [address], 02/03/2025 19:09:13 02/09/20 25 02/08/2025 LDH SERUM TOTAL lactate dehydrogenas e 239 U/L 120-24 6 Pleas e note new refer ence range effec tive 05/30 . Not Available [facility] (Lab) [address] [place], [address], 02/08/2025 16:01:53 02/09/20 25 02/09/2025 PROT. ELEC, SER W/BRETT E K-L CHAIN free kappa lt chains,S 90.8 mg/L 3.3-19 .4 high Not Available [facility] (Lab) [address] [place], [address], 02/09/2025 17:10:17 02/09/20 25 02/09/2025 PROT. ELEC, SER W/BRETT E K-L CHAIN free lambda lt chains,S 57.5 mg/L 5.7-26 .3 high Not Available [facility] (Lab) [address] [place], [address], 02/09/2025 17:10:17 02/09/20 25 02/09/2025 PROT. ELEC, SER W/BRETT E K-L CHAIN kappa/lambda ratio,serum 1.58 0.26-1 .65 Perfo [place]med at: [place] [address] Lab Direc tor: Herminio abarca PhD, Phone : [phone] Not Available [facility] (Lab) [address] [place], [address], 02/09/2025 17:10:17 02/09/20 25 02/09/2025 PROT. ELEC, SER W/BRETT E K-L CHAIN protein, total 9.3 g/dL 6.0-8. 5 high Not Available [facility] (Lab) [address] [place], [address], 02/09/2025 17:10:17 02/09/20 25 02/09/2025 PROT. ELEC, SER W/BRETT E K-L CHAIN albumin 3.5 g/dL 2.9-4. 4 Not Available [facility] (Lab) [address] [place], [address], 02/09/2025 17:10:17 02/09/20 25 02/09/2025 PROT. ELEC, SER W/BRETT E K-L CHAIN jvdhf-5-ehyv ulin 0.2 g/dL 0.0-0. 4 Not Available [facility] (Lab) [address] [place], [address], 02/09/2025 17:10:17 02/09/20 25 02/09/2025 PROT. ELEC, SER W/BRETT E K-L CHAIN daoyq-4-cwdu ulin 0.6 g/dL 0.4-1. 0 Not Available [facility] (Lab) [address] [place], [address], 02/09/2025 17:10:17 02/09/20 25 02/09/2025 PROT. ELEC, SER W/BRETT E K-L CHAIN beta globulin 1.2 g/dL 0.7-1. 3 Not Available [facility] (Lab) [address] [place], [address], 02/09/2025 17:10:17 02/09/20 25 02/09/2025 PROT. ELEC, SER W/BRETT E K-L CHAIN gamma globulin 3.7 g/dL 0.4-1. 8 high Not Available [facility] (Lab) [address] [place], [address], 02/09/2025 17:10:17 02/09/20 25 02/09/2025 PROT. ELEC, SER W/BRETT E K-L CHAIN M-spike 0.6 g/dL not observ ed high Not Available [facility] (Lab) [address] [place], [address], 02/09/2025 17:10:17 02/09/20 25 02/09/2025 PROT. ELEC, SER W/BRETT E K-L CHAIN globulin, total 5.8 g/dL 2.2-3. 9 high Not Available [facility] (Lab) [address] [place], [address], 02/09/2025 17:10:17 02/09/20 25 02/09/2025 PROT. ELEC, SER W/BRETT E K-L CHAIN A/G ratio 0.6 0.7-1. 7 low Not Available [facility] (Lab) [address] [place], [address], 02/09/2025 17:10:17 02/09/20 25 02/09/2025 PROT. ELEC, SER W/BRETT E K-L CHAIN please note: Commen t . Prote in elect ropho resis scan will follo w via compu ter, mail, or couri er erika dickinson. Not Available [facility] (Lab) [address] [place], [address], 02/09/2025 17:10:17 02/09/20 25 02/09/2025 PROT. ELEC, SER W/BRETT E K-L CHAIN pdf . Not Available [facility] (Lab) [address] [place], [address], 02/09/2025 17:10:17 02/09/20 25 02/10/2025 IMMUN OFIXA TION, SERUM immunofixati on result, serum Commen t abnormal Immun ofixa tion shows IgG monoc lonal prote in with kappa light chain speci ficit y. . PLEAS E NOTE: Sampl es from patie nts recei ving DARZA SUDHIR(R ) (finn tumum ab) or SARCL VICKIE(R )(vickie tuxim ab-ir fc) treat ment can appea r as an IgG kappa and mask a compl ete respo nse (CR). If this patie nt is recei ving these thera pies, this ZHANNA assay inter feren ce can be remov ed by [place]be [place] [id number] 8-Im munof ixati on, Darat [place]uma [place] , [place] [address] 2-Im munof ixati on, Sierra ximab -Spec ific, Serum and submi tting a new sampl e for testi ng or by anupama ng the lab to add this test to the curre nt sampl e. Not Available [facility] (Lab) [address] [place], [address], 02/10/2025 16:12:17 02/09/20 25 02/10/2025 IMMUN OFIXA TION, SERUM immunoglobul in g, qn, serum 4263 mg/dL 586-16 02 high Not Available [facility] (Lab) [address] [place], [address], 02/10/2025 16:12:17 02/09/20 25 02/10/2025 IMMUN OFIXA TION, SERUM immunoglobul in M, qn, serum 108 mg/dL 26-217 Perfo rmed at: - [facility] [address], [place] [address] Lab Direc tor: Herminio abarca PhD, Phone : [phone] Not Available [facility] (Lab) [address] [place], [address], 02/10/2025 16:12:17 02/09/20 25 02/10/2025 IMMUN OFIXA TION, SERUM immunoglobul in A, qn, serum 460 mg/dL 64-422 abnormal Not Available [facility] (Lab) [address] [place], [address], 02/10/2025 16:12:17 02/09/2002/11/2025 BETA- 2 MICRO GLOBU ROMAIN, SERUM beta-2 microglobuli n, serum 2.7 mg/L 0.6-2. 4 high Sieme ns Immul ite 2000 Immun ochem ilumi nomet maryann assay (ICMA ) . Value s obtai coral with diffe rent assay metho ds or kits canno t be used inter menon eably . Resul ts canno t be inter prete d as absol seneca evide nce of the prese nce or absen ce of tran mendez se. Perfo rmed at: BN - [facility] [place] [address] [facility] , [place] [address] Lab Direc tor: Anisha alicia MD, Phone : [phone] Not Available [facility] (Lab) [address] [place], [address], 02/11/2025 07:10:00 02/10/20 25 02/11/2025 IMMUN OFIXA TION, URINE immunofixati on, urine COMMEN T: Prese nce of monoc lonal prote in is uncle ar at this time. Sugg est repea t in 3 to 6 month s if clini bautista indic ated. Perfo rmed at: - [facility] [address] [place] [address] Lab Direc tor: Herminio abarca PhD, Phone : [phone] Not Available [facility] (Lab) [address] [place], [address], 02/11/2025 16:12:17 02/10/20 25 02/15/2025 KAPPA /ALAMO DA LT CHAIN FREE, UR alex light chain, free, urine 133.50 mg/L 1.17-8 6.46 high Not Available [facility] (Lab) [address] [place], [address], 02/15/2025 15:10:34 02/10/20 25 02/15/2025 KAPPA /ALAMO DA LT CHAIN FREE, UR lambda lt. chains, free, urine 15.19 mg/L 0.27-1 5.21 Not Available [facility] (Lab) [address] [place], [address], 02/15/2025 15:10:34 02/10/20 25 02/15/2025 KAPPA /ALAMO DA LT CHAIN FREE, UR kappa/lambda ratio 8.79 1.83-1 4.26 Perfo rmed at: BN - [facility] [place] [address] [facility] , [place] [address] Lab Direc tor: Anisha alicia MD, Phone : [phone] Not Available [facility] (Lab) [address] [place], [address], 02/15/2025 15:10:34 02/16/20 25 02/21/2025 PATHO LOGY SERVI CE pathserv SEE COMMEN T See separ ate patho logy repor t. Not Available [facility] (Lab) [address] [place], [address], 02/21/2025 10:00:35 02/16/20 25 02/21/2025 PATHO LOGY SERVI CE pathserv SEE COMMEN T See separ ate patho logy repor t. Not Available [facility] (Lab) [address] [place], [address], 02/21/2025 10:00:39 03/26/20 24 03/26/2024 XR, chest , 2 view [facility] [address] [place] [address] Patien t Name: ELOISA PARSONS Access ion #: [id number] Sex: F : 1949 MRN: [id number] Dictat ed By: Herson geiger Attend ing Physic barbie: JOVANA HALL CE [facility] Physic barbie: JOVANA HALL CE Exam Date: 2023 11:11 AM Exam Name: XR CHEST 2V Admitt ing Diagno sis(es ): CLINIC AL INFORM ATION: 74 years old, Female ; dyspne a. TECHNI QUE: Fronta l and latera l chest radiog raphs were obtain ed. COMPAR RADHA: Prior radiog raph dated 2023. FINDIN GS: Lungs: Mild atelec tasis in the lung bases. Cardia c: Heart size is at the upper limits of normal . Pulmon sandi vascul ature: Mild promin ence of the pulmon sandi vascul ature. Medias tinum/ arley: Modera te calcif icatio n at the aortic arch. Bones: No eviden ce of acute osseou s abnorm ality. Other: No other signif icant findin g. IMPRES LINDA: Mild promin ence of the pulmon sandi vascul ature, may be seen with a mild degree of pulmon sandi vascul ar conges tion in the approp riate clinic al aayush james Electr onical ly Signed by: Herson geiger at 2023 09:35: 12 AM Page [address] (Imaging) [address] [place], [address], 03/26/2024 12:45:03 05/05/20 24 05/04/2024 PFT, compl ete No observ ation record ed. [address] [facility] [address] , [place], [address], 05/05/2024 14:12:46 05/10/20 24 05/04/2024 PFT, compl ete No observ ation record ed. [facility] (Radiology) [address] [place], [address], 05/10/2024 10:47:23 05/26/20 24 05/04/2024 PFT, compl ete No observ ation record ed. [place] [id number] Not Available 2023 17:24:12 02/05/20 25 02/04/2025 US, doppl er, venou s No observ ation record ed. [address], [place], [address], 02/04/2025 15:54:27 Result Notes None recorded. 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 492673222 Active Not Available [facility] 3 17:45:36 Increased frequency of urination 632209658 Active Not Available [facility] 3 17:45:36 Senile osteoporo sis 57518196 Active 2021 Not Available [facility] 3 17:45:36 Non-toxic nodular goiter 587768527 Active Not Available [facility] 3 17:45:36 Biliary dyskinesi a 766260846 Active Not Available [facility] 3 17:45:36 Localized , primary osteoarth ritis of the hand 994951899 Active Not Available Replaced by [facility] 3 17:45:36 Tibialis posterior tendiniti s 549201817 Active Not Available [facility] 3 17:45:36 Tibialis posterior tenosynov itis 760901682 Active Not Available [facility] 3 17:45:36 Abdominal pain 95293112 Active Not Available [facility] 3 17:45:36 Gastroeso phageal reflux disease 499104568 Active Not Available [facility] 3 17:45:36 Ankle pain 346195282 Active Not Available [facility] 3 17:45:36 Ankle edema 76247595 Active Not Available [facility] 3 17:45:36 Pure hyperchol esterolem ia 860695358 Active Not Available [facility] 3 17:45:36 Anemia 921458378 Active 2021 Not Available [facility] 3 17:45:36 Right lower quadrant pain 009277935 Active Not Available [facility] 3 17:45:36 Pain in pelvis 72634593 Active Not Available [facility] 3 17:45:36 Vitamin D deficienc y 51354731 Active 2021 Not Available [facility] 3 17:45:36 Hyperprot einemia 94712990 Active 2021 Not Available [facility] 3 17:45:36 Sprain of ankle 48768965 Active Not Available [facility] 3 17:45:36 Endometri um thickened 396397793 Active Not Available [facility] 3 17:45:36 Foot pain 38962077 Active Not Available [facility] 3 17:45:36 Atrophic vaginitis 53128688 Active Not Available [facility] 3 17:45:36 Essential hypertens ion 65067687 Active 2019 Not Available [facility] 3 17:45:36 Influenza 0035297 Active 2021 Not Available [facility] 3 17:45:36 Acquired hallux rigidus 4765296 Active Not Available Replaced by [facility] 3 17:45:36 Sleep apnea 99567694 Active Not Available [facility] 3 17:45:36 Postmenop ausal bleeding 93883573 Active Not Available Replaced by [facility] 3 17:45:36 Epigastri c pain 44174944 Active Not Available [facility] 3 17:45:36 Mass of left breast 03281895366 349119 Active 2022 Not Available [facility] 3 17:45:36 Acquired coagulati on disorder 772091675 Active 2022 Not Available [facility] 3 17:45:36 Leukopeni a 81310996 Active 2022 Not Available [facility] 3 17:45:36 Pain in left foot 81441109464 9107 Active 2023 Mohsen Escoto DPM [address], [address], [place], [address] , [facility] [employer] 4 15:32:16 Injury of foot 871138373 Active 2023 Mohsen Escoto DPM [address], [address], [place], [address] , [employer] [facility] [employer] 4 15:33:52 Ankle pain 975110182 Active 2023 Mohsen Escoto DPM [address], [address], [place], [address] , [place] [facility] 4 15:38:23 Chest pain 78891854 Active 2023 Leon Hall MD [address], [address], [place], [address] , [place] [facility] 4 15:03:06 Dyspnea on exertion 41624289 Active 2023 Leon Hall MD [address], [address], [place], [address] , [place] [facility] [place] [facility] 4 15:03:21 Dyspnea 641263299 Active 2023 Lillianadriana Alvaradolovely amaya, [place] [facility] [place] [facility] 4 15:11:48 Atypical chest pain 744691021 Active 2023 Lillian David amaya, [place] [facility] 4 15:12:23 Pain in left lower limb 119239160 Active 2024 Leon Hall MD [address], [facility] [address], [place], [address] , [place] [facility] 5 11:30:20 Edema of lower extremity 756693152 Active 2024 Lillian David amaya, [place] [facility] 5 11:41:26 Serum total protein outside reference range 405065648 Active 2024 Leon Hall MD [address], [facility] [address], [place], [address] , [facility] 5 16:00:42 Plasma cell neoplasm 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 Procedures Surgical History Date Name Laterality Status Provider Name and Address Organization Details Recorded Time 5 Excision Cyst Multilayer completed Yvon beebe MD [address] [facility], [address], [place], [address], [employer] [facility] [employer] 02/15/2025 19:49:36 4 Transitional_Ca re_Management completed Leon Hall MD [address] [facility], [address], [place], [address], [employer] [facility] [employer] 03/24/2024 15:09:23 4 Medicare Wellness CPT Code, subsequent completed Apurva Escudero RN [facility] [employer] 09/17/2023 11:17:23 3 other completed Betsy Casanova MA [place] [employer] [facility] [employer] 03/11/2023 12:47:38 Imaging Results None recorded. Procedure Notes None recorded. Medical Equipment None Reported. Allergies Allergen ID Allergen Name Allergen Category Reaction Reaction Severity Criticality Documentation Date Start Date Code Code System Note Provider Name and Address Organization Details Recorded Time 26853 Tamiflu medicatio n swelling Not available Not available 11/13/2022 50024 7 RxNorm Not Available [facility] 3 06:15:39 Medications Name Sig Start Date Stop Date Status Note LastModified by Organization Details LastModified Time clonidine HCl 0.1 mg tablet Take 1 tablet twice a day by oral route. 2013 active Not Available Not Available Not Avai lable atorvastat in 20 mg tablet Take 1 tablet every day by oral route. 02/03 completed Not Available Not Available Not Available Norvasc 10 mg tablet Take 1 tablet every day by oral route. 02/03 completed Not Available Not Available Not Available Coreg 6.25 mg tablet Take 1 tablet twice a day by oral route. 2013 active Not Available Not Available Not Avai lable hydrocodon e 5 mg-acetami nophen 325 mg tablet 09/29 completed Not Available Not Available Not Available meloxicam 15 mg tablet Take 1 tablet every day by oral route as directed for 30 days. 02/03 completed Not Available Not Available Not Available ondansetro n HCl 4 mg tablet 09/29 completed Not Available Not Available Not Available permethrin 5 % topical cream APPLY (THOROUGH LY MASSAGE INTO SKIN FROM HEAD TO SOLES OF FEET) BY TOPICAL ROUTE ONCE LEAVE ON FOR 8-14 HR, THEN REMOVE BY THOROUGH WASHING AND REPEAT IN ONE WEEK TIMES ONE 09/29 completed Not Available Not Available Not Available sulfametho xazole 800 mg-trimeth oprim 160 mg tablet 09/29 completed Not Available Not Available Not Available spironolac tone 25 mg tablet Take 1 tablet every day by oral route. 02/03 completed Not Available Not Available Not Available oseltamivi r 75 mg capsule TAKE 1 CAPSULE BY MOUTH TWICE DAILY FOR 5 DAYS 08/12 completed Not Available Not Available Not Available Norvasc 5 mg tablet Take 1 tablet every day by oral route. 01/06 completed Not Available Not Available Not Available ranitidine 150 mg tablet Take 1 tablet twice a day by oral route. 02/03 completed Not Available Not Available Not Available lisinopril 10 mg tablet Take 1 tablet every day by oral route. 08/12 completed Not Available Not Available Not Available nitroglyce rin 0.4 mg sublingual tablet DISSOLVE ONE TABLET UNDER TONGUE NEEDED FOR CHEST PAIN EVERY 5 MINUTES UP TO 3 TABLETS 2023 active Not Available Not Available Not Avai lable omeprazole 20 mg capsule,de layed release TAKE 1 CAPSULE BY MOUTH EVERY DAY 02/03 completed Not Available Not Available Not Available hydrochlor othiazide 25 mg tablet TAKE ONE TABLET BY MOUTH EVERY DAY 02/03 completed Not Available Not Available Not Available ergocalcif anamika (vitamin D2) 1,250 mcg (50,000 unit) capsule TAKE 1 CAPSULE BY MOUTH EVERY WEEK 02/03 completed Not Available Not Available Not Available methylpred nisolone 4 mg tablets in a dose pack As directed 08/25 completed Not Available Not Available Not Available lisinopril 40 mg tablet Take 1 tablet every day by oral route. 2023 active Not Available Not Available Not Avai lable naproxen 500 mg tablet Take 1 tablet twice a day by oral route as needed. 02/03 completed Not Available Not Available Not Available Crestor 10 mg tablet Take 1 tablet every day by oral route. 08/12 completed Not Available Not Available Not Available Crestor 40 mg tablet Take 1 tablet every day by oral route. active Not Available Not Available No t Available ketorolac 0.4 % eye drops 08/12 completed Not Available Not Available Not Available lisinopril 2012 active Pt didnt know mg. Not Available Not Available Not Available Crestor 2012 active Pt didnt know mg. Not Available Not Available Not Available Vitals Date Recorded Body height Body mass index (BMI) Body weight Heart rate Body temperature Oxygen saturation Oxygen saturation in Arterial blood by Pulse oximetry Systolic blood pressure Diastolic blood pressure Provider Name and Address Organization Details Last Updated DateTime 5 162.56 cm 28.6 kg/m2 53951.1 3 g 90 /min 97 [degF] 99 % 99 % 164 mm[Hg] 80 mm[Hg] Ellie Leo [place] [employer] [facility] [employer] 5 11:13:38 Date Recorded Body height Heart rate Body mass index (BMI) Body weight Systolic blood pressure Diastolic blood pressure Provider Name and Address Organization Details Last Updated DateTime 5 162.56 cm 90 /min 28.5 kg/m2 46796.3 3 g 162 mm[Hg] 82 mm[Hg] NAKUL Castelan [employer] [employer] [facility] [employer] [facility] 5 11:20:41 Date Recorded Body height Body mass index (BMI) Body weight Body temperature Heart rate Respiratory rate Oxygen saturation Oxygen saturation in Arterial blood by Pulse oximetry Systolic blood pressure Diastolic blood pressure Provider Name and Address Organization Details Last Updated DateTime 5 162.56 cm 28.5 kg/m2 17112.3 3 g 98 [degF] 90 /min 14 /min 99 % 99 % 162 mm[Hg] 82 mm[Hg] Lillian Desai [place] [employer] [facility] [employer] 5 12:46:35 Date Recorded Body height Body mass index (BMI) Body weight Body temperature Heart rate Respiratory rate Oxygen saturation Oxygen saturation in Arterial blood by Pulse oximetry Systolic blood pressure Diastolic blood pressure Provider Name and Address Organization Details Last Updated DateTime 5 162.56 cm 28.5 kg/m2 15641.3 3 g 98 [degF] 88 /min 14 /min 99 % 99 % 160 mm[Hg] 80 mm[Hg] Lillian Lloyd [facility] [employer] [facility] 5 10:26:57 Date Recorded Body height Body mass index (BMI) Body weight Heart rate Body temperature Oxygen saturation Oxygen saturation in Arterial blood by Pulse oximetry Systolic blood pressure Diastolic blood pressure Provider Name and Address Organization Details Last Updated DateTime 4 162.56 cm 28.2 kg/m2 98851.1 5 g 97 /min 97.8 [degF] 96 % 96 % 142 mm[Hg] 90 mm[Hg] NAKUL Muñoz [facility] [employer] [facility] 4 14:43:30 Social History Question Answer Notes LastModified by [employer] Details LastModified Time Tobacco Smoking Status Never Smoker Not Available [facility] 11/13/2022 06:07:25 Do You Have An Advance Directive? Yes [id number] Information not available 11/13/2022 Are You Blind Or Do You Have Difficulty Seeing? No MIGRATION.[id number] Information not available 11/13/2022 In The 14 Days Before Symptom Onset, Have You Had Close Contact With A Laboratory-confir med COVID-19 While That Case Was Ill? No Information not available 02/03/2023 In The 14 Days Before Symptom Onset, Have You Had Close Contact With A Person Who Is Under Investigation For COVID-19 While That Person Was Ill? No Information not available 02/03/2023 Are You Deaf Or Do You Have Serious Difficulty Hearing? No [id number] Information not available 11/13/2022 What Type Of Diet Are You Following? REGULAR MIGRATION.[id number] 9295 Information not available 11/13/2022 Have There Been Any Changes To Your Family Or Social Situation? No MIGRATION.707752 8913 Information not available 11/13/2022 What Is The Fluoride Status Of Your Home? Unknown MIGRATION.[id number] 8666 Information not available 11/13/2022 Are There Any Guns Present In Your Home? No MIGRATION.[id number] 2390 Information not available 11/13/2022 Do You Use Insect Repellent Routinely? No MIGRATION.[id number] 3385 Information not available 11/13/2022 Where Do You Live? [facility] [email or web address] Information not available 09/17/2023 Guns Present In The Home? No [email or web address] Information not available 09/17/2023 Are You Able To Care For Yourself? Yes [email or web address] Information not available 09/17/2023 Are You Blind Or Do Yo Have Difficulty Seeing? No [email or web address] Information not available 09/17/2023 Are You Deaf Or Do You Have Serious Difficulty Hearing? No [email or web address] Information not available 09/17/2023 Live Alone Of With Others? With Others [email or web address] Information not available 09/17/2023 Do You Have A Medical Power Of Paperhanger Pipe? Yes [email or web address] Information not available 09/17/2023 What Was The Date Of Your Most Recent Tobacco Screening? 09/17/2023 [email or web address] Information not available 09/17/2023 Do You Have Any Pets? No MIGRATION.[id number] 7485 Information not available 11/13/2022 Do You Use Your Seat Belt Or Car Seat Routinely? Yes [email or web address] Information not available 09/17/2023 Do You Have Smoke And Carbon Monoxide Detectors In Your Home? Yes MIGRATION.562796 6298 Information not available 11/13/2022 Are You Passively Exposed To Smoke? No MIGRATION.903564 6478 Information not available 11/13/2022 Are There Any Smokers In Your House? No MIGRATION.827423 9275 Information not available 11/13/2022 Do You Use Sunscreen Routinely? No MIGRATION.939566 8873 Information not available 11/13/2022 Have You Recently Traveled Abroad? No MIGRATION.857462 9545 Information not available 11/13/2022 Do You Have Difficulty Walking Or Climbing Stairs? No MIGRATION.078931 2196 Information not available 11/13/2022 Do You Have Any Dietary Restrictions? No MIGRATION.231036 6633 Information not available 11/13/2022 Sex: Unknown Functional Status Question Answer Note LastModified by Organizat ion Details LastModified Time What is your level of alcohol consumption? None MIGRATION.[id number] 026 Information not available 11/13/2022 Do you have transportation difficulties? No MIGRATION.7262039 026 Information not available 11/13/2022 Are you able to walk? YESWOREST MIGRATION.3521300 026 Information not available 11/13/2022 Do you have difficulty doing errands alone? No MIGRATION.3329975 026 Information not available 11/13/2022 Are you able to care for yourself? 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 No MIGRATION.5183723 026 Information not available 11/13/2022 What is your exercise level? Occasional MIGRATION.[id number] 026 Information not available 11/13/2022 Mental Status Question Answer Note LastModified by Organizat ion Details LastModified Time Do you have difficulty concentrating, remembering or making decisions? No MIGRATION.[id number] 6 Information not available 11/13/2022 Family History Nothing Reported Notes:Mother 73 from B one Cancer Father 73 from Cancer of the Pancreas Two brothers both living one with essential hypertension and CRF Five sisters living with hx of HTN Medical History Condition Response NERVE DISEASE N BLINDNESS N RHEUMATIC FEVER N KIDNEY STONES N BLADDER PROBLEMS N MRSA N OTHER # 1 N POLIO N LUNG DISEASE/DISORDER N HISTORY OF DRUG ABUSE N RADIATION / CHEMOTHERAPY N COPD N Other # 2 N BLOOD DISEASES N EAR OR HEARING PROBLEMS N MUMPS N SHINGLES N DEPRESSION (INCLUDING POST ) N BOWEL PROBLEMS N STROKE/TIA N ULCERS N BENIGN PROSTATIC HYPERPLASIA N MEASLES N HYPOTENSION N MYOCARDIAL INFARCTION N OBESITY N GERD/NAUSEA N ANEURYSM N URINARY/BLADDER/KIDNEY PROBLEMS N CORONARY ARTERY DISEASE (CAD) N ADDICTION CONCERNS N Impotence N ENDOMETRIOSIS N USE OF BLOOD THINNERS N SKIN PROBLEMS N GASTROINTESTINAL DISORDER N PERIPHERAL VASCULAR DISEASE N MUSCLE,JOINT OR BONE PROBLEMS N GASTROINTESTINAL BLEEDING N BLOOD CLOTS N ASTHMA N CATARACTS N ERECTILE DYSFUNCTION N VARICOSITIES N GI PROBLEMS N Low Testosterone N INFERTILITY N AIDS/HIV N CHEMOTHERAPY / RADIATION N LIVER DISEASE N MALE HYPOGONADISM N HYPERTENSION Y Deficiency N TOURETTE'S N ANXIETY DISORDER N BLOOD TRANSFUSION N ANEMIA/BLOOD DISORDER N CHRONIC EAR INFECTIONS N BRONCHITIS N TUBERCULOSIS N GLAUCOMA N FOOT PROBLEM N DIVERTICULITIS N SLEEP APNEA N CHICKENPOX N INFECTIOUS DISEASE N PROSTATE N HEART ARRHYTHMIA N INSOMNIA N HIGH CHOLESTEROL / HYPERLIPIDEMIA Y HYPERTHYROIDISM N EYE PROBLEMS N EDEMA N CHRONIC PAIN SYNDROME N HYPOTHYROIDISM N CONSTIPATION N CAROTID BLOCKAGE N BACK / NECK PROBLEMS N HAVE YOU BEEN HOSPITALIZED OR SEEN IN [facility] ER IN THE PAST YEAR ? N ATHEROSCLEROSIS N BREAST PROBLEMS N DIALYSIS N ECZEMA N OSTEOPOROSIS N ARTHRITIS N NO SIGNIFICANT PAST MEDICAL HISTORY N APPENDICITIS N DIABETES, TYPE N BAD TEETH N ENT N HEARTBURN / REFLUX Y AUTISM SPECTRUM DISORDER (ASD) N HEPATITIS / LIVER DISEASE N GOUT N SLEEP DISORDER N ALZHEIMER'S DISEASE N Brain Problems N HERPES N DEMENTIA N SEIZURES/EPILEPSY N HEADACHES/MIGRAINES N VASCULAR DISEASE N PACEMAKER N Blood Disorder N DIZZINESS N KIDNEY DISEASE N HEART DISEASE/HEART PROBLEMS N MULTIPLE SCLEROSIS N CARDIAC ARRHYTHMIA N CANCER: SPECIFY N Gall Stones N ATRIAL FIBRILLATION N PULMONARY EMBOLISM N AUTOIMMUNE DISEASE N Gynecological HistoryNo gynecological history recorded. Obstetrics History GPAL:G 0 P 0 0 0 0 Immunizations Vaccine Type Date Status Note Provider Nam e and Address Organization Details Recorded Time Influenza, high-dose, trivalent, PF 12/08/2019 completed Not Available [facility] 04:36:05 Past Encounters Encounter ID Performer Location Encounter Start Date Encounter Closed Date Diagnosis/Indication Diagnosis SNOMED-CT Code Diagnosis ICD10 Code Diagnosis Note [id number] Leon Hall MD [facility] Internal Med [facility] [address] [address] 08/12/2022 00:00:00 08/12/2022 12:05:56 [id number] Yvon ledesma MD [facility] General Surgery [address] [address] 10/22/2022 00:00:00 10/22/2022 14:11:20 [id number] Leon Hall MD [facility] [place] [facility] [address] [address] 02/03/2023 11:12:45 02/03/2023 15:40:10 Mass of left breast 0174612949 9454046 N63.20 Essential hypertension 24577365 I10 Pure hypercholesterolemia 784530507 E78.00 Acquired c oagulation disorder 298739657 D68.8 [id number] Yvon ledesma MD [facility] General Surgery [address] [address] 02/25/2023 10:47:41 02/28/2023 09:04:34 Mass of left breast 1797322524 4332398 N63.20 [id number] Yvon ledesma MD [facility] General Surgery [address] [address] 03/13/2023 10:45:03 03/17/2023 10:52:10 [id number] Leon Hall MD [facility] Internal Med [facility] [address] [address] 09/17/2023 10:34:48 09/17/2023 11:38:27 Adult health examination 320198231 Z00.00 Screening for disorder 451810219 Z13.9 Essential hypertension 81068271 I10 Pure hypercholesterolemia 808664045 E78.00 Hyperproteinemia 1927034 9 E88.09 Gastroesop hageal reflux disease 127467789 K21.9 Vitamin D deficiency 347 38956 E55.9 [id number] Mohsen Escoto DPM [facility] Podiatry [place] Mckenna [address] [place] [address] 12/01/2023 14:48:19 12/01/2023 16:15:48 Pain in left foot 2100165584 89855 M79.672 x-rays negativere commend no strenuous activities continue supportive shoe gearobtain ultrasound of the ankle rule out tendinitis versus tendon injuryfoll ow-up after testing Ankle pain 946386360 M25 .579 as above [id number] Mohsen Escoto DPM [facility] Podiatry [place] [address] [place] [address] 12/11/2023 11:50:15 12/11/2023 14:16:49 Pain in left foot 5204965816 22779 M79.672 x-rays negativeUl trasound reviewed with the patientrec ommend lace-up ankle support brace over-the-c ounterat home physical therapy may continuefo llow-up as needed Ankle pain 438606476 M25 .579 as above [id number] Leon Hall MD [facility] Internal Med [facility] [address] [address] 03/24/2024 14:34:22 03/24/2024 15:44:34 Transition of care 9969398375 105 Z75.8 Chest pain 64401319 R07. 9 Dyspnea on exertion 6084 5006 R06.09 Essential hypertension 27675085 I10 [id number] Leon Hall MD [facility] Internal Med [facility] [address] [address] 02/03/2025 11:10:17 02/03/2025 11:48:36 General examination of patient 664146020 Z00.00 Essential hypertension 94232805 I10 Gastroesop hageal reflux disease 279438957 K21.9 Pure hypercholesterolemia 295928213 E78.00 Pain in le ft lower limb 494507877 M79.178 [id number] CHELO Pollard [facility] General Surgery 2043 [facility], [address] [address] 02/08/2025 10:57:12 02/08/2025 11:41:14 [id number] Yvon ledesma MD [facility]43 [facility] [address] [address] 02/15/2025 12:04:35 02/15/2025 19:50:36 Skin lesion 94595397 L98.9 Right shoulder Epidermoid cyst 52908349 6 L72.0 Chest [id number] Yvon ledesma MD [facility] General Surgery 2043 [facility] [address] [address] 02/24/2025 10:12:37 02/24/2025 10:52:18 Skin lesion 40264840 L98.9 Right shoulder, anterior chest Health Concerns Section Related Observation LastModified by Organization Detai ls LastModified Time None Recorded Concern Status LastModified by Organization Details LastModified Time None Recorded Advance Directives Directive Y: Payers Insurance Date Sequence Insurance Name Policy Number Policy Aldridge Covered Member ID Aldridge Member ID Guarantor Name 02/24/2025 1 [place] Eloisa Parsons [id number] Eloisa Parsons 02/24/2025 1 [employer] (MEDICARE REPLACEMENT/ ADVANTAGE - PPO) [id number] Eloisa Parsons [id number] Eloisa Parsons Notes Date Note Type Note Provider Name and Address Organization Details Recorded Time 03/24/20 24 text/htm l Patient Name: Eloisa ParsonsDate Of Service: Friday ( 03.24.2024 ): 1950 Age: 74 There has been approximately a 8 lb weight loss since 09/17/2023. This represents approximately a 4.7% change in weight. Weight change attributable to lifestyle changes. Vital Signs:Blood Pressure: Sitting Rt. Arm 142/80Pulse: Sitting 97 /min and RegularRespiratory Rate: 14Height 64 in or 1.6 mWeight 164 lb or 74.4 kgBMI 28.1Temperature: 97.8 F or 36.6 CPulse Oximetry: 96 % at rest on no oxygen Chief Complaint: Addressed in HPI Problems or conditions discussed in the HPI were the only ones reviewed during the encounter.Only social and family history addressed in the HPI were reviewed during this encounter. Attendant(s): NieceConstitutional and Systemic Symptoms:generalized fatigue Medication Reconciliation: from medication list. Bkqneidrxvx58/12/2023: Bone density scan demonstrated normal bone density of the lumbar spine. Bilateral hip score showed some osteopenia per 10/15/2022: More detailed examination of breast by mammography demonstrates suspicious lesion in the left upper outer quadrant. 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 History of Present Illness #1. Atypical chest pain location midsternum. Not precipitated by exertion or relieved by rest. Not associated with any nausea, vomiting or any other gastrointestinal symptomatology. The pain does radiate from the subxiphoid area to the neck. Also to the left shoulder but not into the arm. Not associated with any shortness of breath orthopnea or any other cardiovascular or pulmonary symptomatology. May last actually for several hours and then spontaneously gretchen. Denies any history suggestive of recurrent reflux type symptomatology. Cholesterol was elevated from the hospital laboratory studies. Negative troponins and D-dimer: #2. Complaining of dyspnea on exertion which has been going on for several months. Nonsmoker. Denies any actual wheezing. No orthopnea, PND or any other associated wheezing or other pulmonary symptoms. Is a nonsmoker. No radiographic studies apparently were performed in the hospital.: Active Medication ListHydrochlorothiazide 25 MG (TABLET - ORAL) One DailyNitrostat 0.4 MG (TABLET - SUBLINGUAL) One Sl Prn For Chest PainNorvasc 10 MG (TABLET - ORAL) DailyLisinopril 40 MG (TABLET - ORAL) One Daily Adverse Drug Reactions ReviewedTamiflu Hives Swelling Vaccination and Rrxkerhtwdyb3997-61 Influenza Surgical Pkucnqz3017-70 Breast Zfqlab1358-94 Lap Keayylqwbhgaosf9570-68 Left Xzbzikrq2724-86 Tubal Xurdrcso0759-11 Tonsillectomy Preventative Taxdhjw2903/20/2024 ALBUMIN 4.7 G/DL H002/13/2023 MAMMOGRAM 4009/26/2022 DEXA SCAN08/15/2022 MICRO ALBUMIN 18.0 % N011/27/2019 CT SVAPUP0801/31/2015 UPPER SBOQLUEAD68/28/2014 COLONOSCOPY (5 YEARS) 05/12/2019 Social HistoryDoe snot smoke or drink Family HistoryMother 73 from Bone CancerFather 73 from Cancer of the PancreasTwo brothers one living one with essential hypertension and CRF the other shot and killed.Five sisters four living with hx of HTN and one of some form of metastatic cancer. Leon Hall MD [address] [place] [address], [place], [address], [place] [facility] [employer] 03/24/2024 15:10:28 02/04/20 25 text/htm l Patient Name: Eloisa ParsonsDate Of Service: January ( 02.03.2025 ): 1950 Age: 75 There has been approximately a 2.5 lb weight gain since 03/24/2024. This represents approximately a 1.5% change in weight. Weight change attributable to lifestyle changes. Vital Signs:Blood Pressure: Sitting Rt. Arm 164/80Pulse: Sitting 90 /min and RegularRespiratory Rate: 16Height 64 in or 1.6 mWeight 166.5 lb or 75.5 kgBMI 28.6Temperature: 97 F or 36.1 CPulse Oximetry: 99 % at rest on no oxygen Chief Complaint: Addressed in HPI Problems or conditions discussed in the HPI were the only ones reviewed during the encounter.Only social and family history addressed in the HPI were reviewed during this encounter. A significant, separate E/M service was performed to evaluate the current and new problems. Attendant(s): NoneConstitutional and Systemic Symptoms:none Medication Reconciliation: from medication list. Tojmfegvpar26-76-1789: Renal ultrasound demonstrates normal findings with no suggestion of renal artery stenosis. Increased echogenicity both kidneys nonspecific 05-04-2024: PFT shows normal pulmonary mechanics. No significant airway obstruction. History of Present Illness Reviewed the findings of the preventative health visit. Addressed all areas with the patient, patient's family or caregivers. Preventative examinations and testing immunizations - vaccinations all reviewed and ordered where patient was amenable to the recommendations. Cognitive function see HPI but demonstrated no overall change in cognitive status . Depression addressed and where necessary medications were adjusted or instituted. End of life and living will briefly discussed with patient and where these can be filled out and legally executed. Other blood and imaging studies were ordered if considered necessary. Other recommendations may be found in the encounter note. #1. Essential Hypertension: Stage: Stage I Interval Neurological Complaints no headaches. No shortness of breath, orthopnea or cardiovascular symptoms. No other symptoms related to end organ damage. Pressure has been under fair control. Currently elevated and instructed to recheck in office in two weeks. No other end organ symptoms or findings. Therapy reviewed regarding management of hypertension and includes Lisinopril. #2. Hx of esophageal reflux currently stable. Hx of Complications: none The severity, duration and intensity of symptoms have improved. Frequency: most meals Treatment consists medications taken on no regular basis. Current therapy includes no medication. There has been no nausea, eructation, vomiting, hematemesis, dysphagia, velopharyngeal insufficiency and odynophagia. No change in he frequency or intensity of symptoms. Has had no melena. Has had no . Discussed use of H2 antagonists NA. #3. History of hypercholesterolaemia: History of the high cholesterol. Not taking any medications and being controlled by diet. No interval complaints of any chest pain, shortness of breath, orthopnea or other cardiovascular complaints. Last lipid panel: suboptimal by ATP III guidelines #4. Recent history of some pain and discomfort from the knee on down on the left side. This has been associated with some swelling in the leg. There is some tenderness in the calf muscle. No Homans sign is noted but he has can somewhat concerning in that she has become more immobile and has fallen least one occasion because of the discomfort. There has been no history of any loss of consciousness. No other syncope type symptoms. Denies any history of any shortness of breath, hemoptysis or any other findings are suggestion of any pulmonary emboli.: Wellness Evaluation PHQ-2 Score Last Two Weeks Last Two Weeks: 0: Not at all 1: Several Days 2: More than half 3: Almost Every day #1. Little interest or pleasure in doing things Score: 0#2. Feeling down, depressed, or hopeless Score: 0Score 0FAST Stage: 1 No functional decline Basic ADLS Ambulation Normal YesEating YesBed Transfer YesWalker NoCane NoFalls YesMultiple Falls NoBathing and Showering YesDressing YesFeeding YesFunctional Mobility YesPersonal Hygiene YesToilet Hygiene YesHome Safety Yes Instrumental ADLS House Work YesTaking Medications YesShopping YesTelephone YesUsing Technology YesTransportation YesPreparing Meals Yes Additional Topics Advanced Directives Literature ProvidedLiving Will Not Discussed Mini Mental Status Exam Time Score: 5Location Score: 5Registration Score: 3Attention Score: 5Recall Score: 3Language Score: 2Repetition Score: 1Sentence Score: 1Reading Score: 1Pentagons Score: 0Command Score: 3 29 Normal Social and Physical Activities Drinking History: NoneExercise 20 Minutes per Week: No, do not exercise muchDifficulty Driving Car: NoSmoking History: NoOther Problems: None,Falling,Orthostatic,Trou ble Eating,Teeth Denture Problems,Problems using Telephone,Tiredness or fatigue No Living Will on File! Active Medication ListNitrostat 0.4 MG (TABLET - SUBLINGUAL) One Sl Prn For Chest PainLisinopril 40 MG (TABLET - ORAL) One Daily Adverse Drug Reactions ReviewedTamiflu Hives Swelling Vaccination and ImmunizationImmunizations and Vaccinations Discussed and Implemented if feasible In the Office. Else referred to pharmacies. (X) 2012-09 INFLUENZA Surgical Hvdhetz0277-59 Breast Rxdyud6044-29 Lap Xmyljplpfmhwvly6126-38 Left Scvighci0610-43 Tubal Gauknswb8460-32 Tonsillectomy Preventative TestingPreventative Testing Discussed and Scheduled if Acceptable to Patient ( ) 03/24/2024 Albumin 4.4 G/DL( ) 02/13/2023 Mammogram 02/13/2025(X) 09/26/2022 DEXA Scan 09/26/2024( ) 08/15/2022 Micro Albumin 18.0 % N( ) 11/27/2019 CT Thorax( ) 01/31/2015 Upper Endoscopy(X) 05/12/2014 Colonoscopy (5 Years) 05/12/2019 Social HistoryDoe snot smoke or drink Family HistoryMother 73 from Bone CancerFather 73 from Cancer of the PancreasTwo brothers one living one with essential hypertension and CRF the other shot and killed.Five sisters four living with hx of HTN and one of some form of metastatic cancer. Loen Hall MD [address] [place] [address], [facility] [address], [place], [address], [place] [facility] [employer] 02/03/2025 11:38:05 02/09/20 25 text/htm l Patient presents to clinic to discuss spots of anterior chest wall. States she has had a dark mole pop up on her R anterior shoulder over the past 6 months or so and it has continued to get larger and darker. She also has a spot on anterior chest which is swollen and sometimes a little tender. No drainage. Not changing much. It has been there for a couple months. No consitutional symptoms. No fevers. CHELO Pollard [address] [facility] [address], [place], [address], [facility] 02/08/2025 11:41:13 02/16/20 25 text/htm l Patient presents to clinic to for excision of spots of anterior chest wall. States she has had a dark mole pop up on her R anterior shoulder over the past 6 months or so and it has continued to get larger and darker. She also has a spot on anterior chest which is swollen and sometimes a little tender. No drainage. Not changing much. It has been there for a couple months. No consitutional symptoms. No fevers. Yvon beebe MD [address] [facility] [address], [place], [address], [facility] 02/16/2025 12:01:21 02/25/20 25 text/htm l No complaints Yvon beebe MD [address] [address], [place], [address], [facility] 02/24/2025 14:16:27 OBGyn Episode No OBEpisode recorded.
--- OUTSIDE RECORDS SUMMARY | 2025-02-24 16:53 | XMS_ITS | Clinical Summary ---
Author Organization [facility] Address [address] [place] [address] Care Team Providers Care Supervisor Pipeline Maintenance Name Role Phone No, Physician Primary Care Provider [phone] Allergies Active Allergy Reactions Criticality Noted Date [...] on file Legal Sex Female 4:12 PM PARK SERVICES SPECIALIST Gender Identity Not on file Sexual Orientation [...] CDT) Hep C Ab Nonreactive Nonreactive [facility] Comment:Antibodies to HCV no t detected. Does NOT exclude the possibility of recent exposure to HCV. Current interpretive data was last revised on 22 Blood 04/17/2023 3:23 PM CDT 04/17/2023 4:09 PM CDT us Bertha Zhao MD LAB MICROBIOLOGY - GENERAL ORDERABLES Edited Result - Final JACLYN CELAYA [facility] [place] [address] from Last 3 Months or Most Recently Relevant to Health Maintenance Insurance MEDICARE Care Teams Supervisor Pipeline Maintenance Relationship Specialty Start Date End Date No, Physician PCP - General 02/18/23
--- OUTSIDE RECORDS SUMMARY | 2025-02-24 16:53 | XMS_ITS | Clinical Summary ---
Author Organization [facility] Rajiv tovar Vesta Address [address] [place] [address] Care Team Providers Care Fuel Island Attendant Name Role Phone Unavailable Primary Care Provider Unavailabl e Allergies No known active allergies Medications lisinopriL (PRINIVIL) 40 mg tablet Take 40 mg by mouth daily. Active NITROGLYCERIN ORAL Take by mouth Continuous as needed. Active hydroCHLOROthia zide 12.5 mg tablet Take 12.5 mg by mouth daily. Active Active Problems No known active problems Encounters Date Type Department Care Team Description 02/23/[address] [facility] Oncology and Hematology - [place] [place] [address] Colin Diane MD 02/23/[address] [facility] Oncology and Hematology - [place] [address] [place] [address] Colin Diane MD 02/22/2025 External Device Data STL ABSTRACTION Provider, Abstract 02/22/2025 External Device Data STL ABSTRACTION Provider, Abstract 02/22/2025 External Device Data STL ABSTRACTION Provider, Abstract 02/22/[address] [facility] Oncology and Hematology - [place] [place] [address] Colin Diane MD 02/21/2025 11:30 AM CDT Office Visit [facility] Oncology and Hematology - [place] [place] [address] Colin Diane MD Plasma cell disorder (Primary [...] 03/07/2025 4:30 PM CDT Telephone Check Up [facility] Oncology and Hematology - [place] [address] [place] [address] Colin Diane MD [address] [facility] [address] [place] [address] Health Maintenance Due Date Last Done Comments DTAP/TDAP/TD VACCINES (1 - Tdap) 1969 COLORECTAL SCREENING 1995 Colorectal Cancer Screening 1995 FIT-DNA Q 3 years 1995 FIT/FOBT Q 1 year 1995 Flex Sig/CT Colonography Q 5 years 1995 PNEUMOCOCCAL VACCINE 50+ YEARS (1 of 1 - PCV) 01/28/20 00 ZOSTER VACCINE (1 of 2) 01/28/2000 OSTEOPOROSIS SCREENING 2015 INFLUENZA VACCINE (#1) 2024 12/08/2019 RSV VACCINE (60+ or ) (1 - 1-dose 75+ series) 2025 Procedures Procedure Name Priority Date/Time Associated Diagnosis Comments KAPPA/LAMBDA LIGHT CHAINS Routine 2024 4:17 PM CDT IMMUNOGLOBULINS IGG IGA IGM Routine 02/21/2025 11:05 AM CDT COMPREHENSIVE METABOLIC PANEL Routine 02/21/2025 10:08 AM CDT from Last 3 Months Results * KAPPA/LAMBDA, FREE LIGHT CHAINS (02/21/2025 4:17 PM CDT) Blood us Colin Diane MD CHEMISTRY ORDERABLES Final Resu lt * IMMUNOGLOBULINS IGG IGA IGM (02/21/2025 11:05 AM CDT) Blood us Colin Diane MD CHEMISTRY ORDERABLES Final Resu lt * COMPREHENSIVE METABOLIC PANEL (02/21/2025 10:08 AM CDT) Blood us Colin Diane MD CHEMISTRY ORDERABLES Final Resu lt from Last 3 Months Insurance [facility]
--- OUTSIDE RECORDS SUMMARY | 2025-02-24 16:53 | XMS_ITS | Referral Summary ---
Author Organization [facility] Address [address] [place] [address] Care Team Providers Care Real Estate Paralegal Name Role Phone No, Physician Primary Care Provider [phone] Allergies Active Allergy Reactions Criticality Noted Date [...] on file Legal Sex Female 4:12 PM CARE CLINICIAN Gender Identity Not on file Sexual Orientation [...] Edited Result - Final JACLYN CELAYA [facility] Department [place] [address] from Last 3 Months or Most Recently Relevant to Health Maintenance Insurance MEDICARE Care Teams Real Estate Paralegal Relationship Specialty Start Date End Date No, Physician PCP - General 02/18/23
--- OUTSIDE RECORDS SUMMARY | 2025-02-24 16:53 | XMS_ITS | Continuity of Care Document ---
Author Organization [place] [facility] Veronica [facility], [facility] General Surgery Address [address] [place] [address] Assessment Encounter Date Assessment Date Assessment LastModified by Organization Details LastModified Time 02/24/2025 02/24/2025 status post excision benign lesions right anterior shoulder and anterior chest wall. Wounds healing appropriately . Sutures removed. Follow up here p.[email or web address] Not available 02/24/2025 10:51:59 Plan of Treatment Reminders Order Date Submit Date Provider Last Modified By Organization Details Last Modified Time Details Appointments Follow Up 15 2024 09:30A M Yvon almazan MD Not available Not available Not available Lab None recorded . Referral None recorded . Procedures None recorded . Surgeries None recorded . Imaging None recorded . Medication Orders None recorded . Patient TargetsNo targets recorded. Patient InstructionsNo instructions recorded. Reason for Referral None Reported. Results Created Date Observation Date Name Description Value Unit Range Abnormal Flag Note LastModifiedBy Organization Detail LastModifiedTime 02/05/2002/04/2025 US, doppl er, venou s No observ ation record ed. [address], [place], [address], 02/04/2025 15:54:27 Result Notes None recorded. 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 187762705 Active Not Available [facility] 3 17:45:36 Increased frequency of urination 905348223 Active Not Available [facility] 3 17:45:36 Senile osteoporo sis 26235952 Active 2021 Not Available [facility] 3 17:45:36 Non-toxic nodular goiter 179718127 Active Not Available [facility] 3 17:45:36 Biliary dyskinesi a 973267449 Active Not Available [facility] 3 17:45:36 Localized , primary osteoarth ritis of the hand 585161554 Active Not Available [facility] 3 17:45:36 Tibialis posterior tendiniti s 614582563 Active Not Available [facility] 3 17:45:36 Tibialis posterior tenosynov itis 651979817 Active Not Available [facility] 3 17:45:36 Abdominal pain 51170842 Active Not Available [facility] 3 17:45:36 Gastroeso phageal reflux disease 981474123 Active Not Available [facility] 3 17:45:36 Ankle pain 978229717 Active Not Available [facility] 3 17:45:36 Ankle edema 53998072 Active Not Available [facility] 3 17:45:36 Pure hyperchol esterolem ia 681022124 Active Not Available [facility] 3 17:45:36 Anemia 854723532 Active 2021 Not Available [facility] 3 17:45:36 Right lower quadrant pain 629989809 Active Not Available [facility] 3 17:45:36 Pain in pelvis 40203671 Active Not Available [facility] 3 17:45:36 Vitamin D deficienc y 28787085 Active 2021 Not Available [facility] 3 17:45:36 Hyperprot einemia 43648860 Active 2021 Not Available [facility] 3 17:45:36 Sprain of ankle 09297968 Active Not Available [facility] 3 17:45:36 Endometri um thickened 338635715 Active Not Available [facility] 3 17:45:36 Foot pain 36859900 Active Not Available [facility] 3 17:45:36 Atrophic vaginitis 72963441 Active Not Available [facility] 3 17:45:36 Essential hypertens ion 95389550 Active 2019 Not Available [facility] 3 17:45:36 Influenza 2091462 Active 2021 Not Available [facility] 3 17:45:36 Acquired hallux rigidus 4487564 Active Not Available [facility] 3 17:45:36 Sleep apnea 83662490 Active Not Available [facility] 3 17:45:36 Postmenop ausal bleeding 10253308 Active Not Available [facility] 3 17:45:36 Epigastri c pain 04043732 Active Not Available [facility] 3 17:45:36 Mass of left breast 37069536722 684345 Active 2022 Not Available [facility] 3 17:45:36 Acquired coagulati on disorder 969349001 Active 2022 Not Available [facility] 3 17:45:36 Leukopeni a 50966273 Active 2022 Not Available [facility] 3 17:45:36 Pain in left foot 99712479229 9107 Active 2023 Mohsen Escoto DPM [address], [address], [place], [address] , [employer] [facility] [address] [facility] 4 15:32:16 Injury of foot 812562840 Active 2023 Mohsen Escoto DPM [address], [address], [place], [address] , [employer] [facility] [employer] [facility] 4 15:33:52 Ankle pain 001121624 Active 2023 Mohsen Escoto DPM [address], [address], [place], [address] , [employer] S [employer] [facility] 4 15:38:23 Chest pain 67997904 Active 2023 Leon Hall MD [address], [address], [place], [address] , [facility] 4 15:03:06 Dyspnea on exertion 09240585 Active 2023 Leon Hall MD [address], [address], [place], [address] , [facility] 4 15:03:21 Dyspnea 033550832 Active 2023 Lillian amaya, [place] [facility] 4 15:11:48 Atypical chest pain 954487910 Active 2023 Lillian Hernandez null, [place] [facility] 4 15:12:23 Pain in left lower limb 671082392 Active 2024 Leon Hall MD [address], [address], [place], [address] , [facility] 5 11:30:20 Edema of lower extremity 096057653 Active 2024 Lillian amaya, [facility] 5 11:41:26 Serum total protein outside reference range 177779483 Active 2024 Leon Hall MD [address], [address] [address], [place], [address] , 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 5 12:39:56 Skin lesion 34819629 Active 2024 Yvon ledesma MD [address], [address], [place], [address] , [facility] 5 12:00:05 Epidermoi d cyst 300725742 Active 2024 Yvon ledesma MD [address], [address], [place], [address] , [facility] 5 12:01:11 Problem Notes None recorded. Procedures Surgical History Date Name Laterality Status Provider Name and Address Organization Details Recorded Time 5 Excision Cyst Multilayer completed Yvon beebe MD [address] [facility], [address], [place], [address], [facility] [employer] [facility] [employer] [facility] 02/15/2025 19:49:36 4 Transitional_Ca re_Management completed Leon Hall MD [address], [address], [place], [address], [facility] [employer] [facility] [employer] [facility] 03/24/2024 15:09:23 4 Medicare Wellness CPT Code, subsequent completed Apurva Escudero RN [facility] [employer] 09/17/2023 11:17:23 3 other completed Betsy Casanova MA [place] [employer] [facility] [employer] 03/11/2023 12:47:38 Imaging Results None recorded. Procedure Notes None recorded. Medical Equipment None Reported. Allergies Allergen ID Allergen Name Allergen Category Reaction Reaction Severity Criticality Documentation Date Start Date Code Code System Note Provider Name and Address Organization Details Recorded Time 17911 Tamiflu medicatio n swelling Not available Not available 11/13/2022 24760 7 RxNorm Not Available [facility] 3 06:15:39 Medications Name Sig Start Date [...] a day by oral route as needed. 05/22 /2023 completed Not Available Not Available Not Available [...] Updated DateTime 5 162.56 cm 28.5 kg/m2 80644.3 3 g 98 [degF] 88 /min 14 /min 99 % 99 % 160 mm[Hg] 80 mm[Hg] Lillian HUGHES - [facility] [employer] 5 10:26:57 Social History Question Answer Notes LastModified by Organizat ion Details LastModified Time Tobacco Smoking Status Never Smoker Not Available [facility] 11/13/2022 06:07:25 Do You Have An Advance Directive? Yes MIGRATION.[id number] Information not available 11/13/2022 Are You Blind Or Do You Have Difficulty Seeing? No MIGRATION.655338 8736 Information not available 11/13/2022 In The 14 [...] Do You Have Serious Difficulty Hearing? No MIGRATION.369803 6081 Information not available 11/13/2022 What Type Of Diet Are You Following? REGULAR MIGRATION.844004 2240 Information not available 11/13/2022 Have There Been Any Changes To Your Family Or Social Situation? No MIGRATION.193654 0927 Information not available 11/13/2022 What Is The Fluoride Status Of Your Home? Unknown MIGRATION.630751 0026 Information not available 11/13/2022 Are There Any Guns Present In Your Home? No MIGRATION.814755 1550 Information not available 11/13/2022 Do You Use Insect Repellent Routinely? No MIGRATION.718115 9674 Information not available 11/13/2022 Where [facility] You Live? [facility] [email or web address] Information not available 09/17/2023 Guns Present In The Home? No [email or web address] Information not available 09/17/2023 Are You Able To Care For Yourself? Yes [email or web address] Information not available 09/17/2023 Are You Blind Or Do Yo Have Difficulty Seeing? No [email or web address] Information not available 09/17/2023 Are You Deaf Or Do You Have Serious Difficulty Hearing? No [email or web address] Information not available 09/17/2023 Live Alone Of With Others? With Others [email or web address] Information not available 09/17/2023 Do You Have A Medical Power Of Triage Nurse? Yes Information not available 09/17/2023 What Was The Date Of Your Most Recent Tobacco Screening? 09/17/2023 [email or web address] Information not available 09/17/2023 Do You Have Any Pets? No MIGRATION.816068 2182 Information not available 11/13/2022 Do You Use Your Seat Belt Or Car Seat Routinely? Yes [email or web address] Information not available 09/17/2023 Do You Have Smoke And Carbon Monoxide Detectors In Your Home? Yes MIGRATION.869123 8710 Information not available 11/13/2022 Are You Passively Exposed To Smoke? No MIGRATION.596610 7504 Information not available 11/13/2022 Are There Any Smokers In Your House? No MIGRATION.309740 7915 Information not available 11/13/2022 Do You Use Sunscreen Routinely? No MIGRATION.062610 0162 Information not available 11/13/2022 Have You Recently Traveled Abroad? No MIGRATION.127521 6550 Information not available 11/13/2022 Do You Have Difficulty Walking Or Climbing Stairs? No MIGRATION.670819 3129 Information not available 11/13/2022 Do You Have Any Dietary Restrictions? No MIGRATION.260569 6067 Information not available 11/13/2022 Sex: Unknown Functional Status Question Answer Note LastModified by Organizat ion Details LastModified Time What is your level of alcohol consumption? None MIGRATION.2061570 026 Information not available 11/13/2022 Do you have transportation difficulties? No MIGRATION.7938309 026 Information not available 11/13/2022 Are you able to walk? YESWOREST MIGRATION.8229513 026 Information not available 11/13/2022 Do you have difficulty doing errands alone? No MIGRATION.4559914 026 Information not available 11/13/2022 Are you able to care for yourself? 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 No MIGRATION.3660137 026 Information not available 11/13/2022 What is your exercise level? Occasional MIGRATION.8179800 026 Information not available 11/13/2022 Mental Status Question Answer Note LastModified by Organizat ion Details LastModified Time Do you have difficulty concentrating, remembering or making decisions? No MIGRATION.737329775 6 Information not available 11/13/2022 Family History [...] HAVE YOU BEEN HOSPITALIZED OR SEEN IN [facility] IN THE PAST YEAR ? N [...] high-dose, trivalent, PF 12/08/2019 completed Not Available [facility] 2023 04:36:05 Past Encounters Encounter ID Performer Location Encounter Start Date Encounter Closed Date Diagnosis/Indication Diagnosis SNOMED-CT Code Diagnosis ICD10 Code Diagnosis Note [id number] Leon Hall MD [facility] Internal Med [facility] [address] [address] 02/03/2025 11:10:17 02/03/2025 11:48:36 General examination of patient 872630711 Z00.00 Essential hypertension 22822068 I10 Gastroesop hageal reflux disease 768722708 K21.9 Pure hypercholesterolemia 480059485 E78.00 Pain in le ft lower limb 437837214 M79.424 [id number] CHELO Pollard [facility] General Surgery [address] [address] 02/08/2025 10:57:12 02/08/2025 11:41:14 [id number] Yvon ledesma MD [facility] General Surgery [address] [address] 02/15/2025 12:04:35 02/15/2025 19:50:36 Skin lesion 66379354 L98.9 Right shoulder Epidermoid cyst 52496897 6 L72.0 Chest [id number] Yvon ledesma MD [facility] General Surgery [address] [facility] [place] [address] 02/24/2025 10:12:37 02/24/2025 10:52:18 Skin lesion 97386437 L98.9 Right shoulder, anterior chest Health Concerns Section Related Observation LastModified by Organization Detai ls LastModified Time None Recorded Concern Status LastModified by Organization Details LastModified Time None Recorded Payers Encounter Date Sequence Insurance Name Policy Number Policy Aldridge Covered Member ID Aldridge Member ID Guarantor Name 02/24/2025 1 [employer] (MEDICARE REPLACEMENT/ ADVANTAGE - PPO) [id number] Eloisa Chowdhury [id number] Eloisa Chowdhury Notes Date Note Type Note Provider Name and Address Organization Details Recorded Time 02/24/2025 text/html No complaints Yvon Breen MD [address] [facility], [address], [place], [address], [place] [facility] 02/24/2025 14:16:27 OBGyn Episode No OBEpisode recorded.
== END 2025-02-24 16:49 | disposition home or self-care (01) ==
PROVIDERS: PCP Internal Medicine; Visit Provider Internal Medicine Hematology & Oncology
DX: D72.9 Disorder of white blood cells, unspecified (principal)
CPT/HCPCS: 77075